=== PATIENT | female | born 1970 | race Caucasian/White ===

== ENCOUNTER 2016-10-08 11:26 | Inpatient (IN) | payer OTHER ==
--- NOTE | 2016-10-08 14:00 | ADMNOTE ---
Admission Note HPI - HPI Handedness: EMU H&P right History of Present Illness: Brina Mcghee is a 45 year old woman with a history of asthma who began having spells of alteration in consciousness/unresponsiveness in May. I saw her in my office on 09/21/16 and she was referred for long-term monitoring after undergoing a routine EEG. The initial episode occurred a few hours after she received an injection of a new medication for asthma. She did not know the name of this medication. She was observed in Dr. Dudley's office for an hour after the injection and was fine , but then in the car she had an unresponsive spell where her eyes were open, but she was staring straight ahead and wasn't speaking. When she came out of it , she was mumbling, didn't recognize her children or her own home. She was brought to the ED in [place] and then had a bad asthma attack. Her deputy sheriff building guard apparently looked into whether this medication could cause seizures and told her it had never been reported. She was then fine for a month or month and a half, but episodes then returned and have been occurring daily. Her eyes go "blank". She is motionless during an episode and she has fallen on a couple of occasions. They typically last a minute or minute and a half but she had one last night that lasted 3 minutes (her told her this, she does not recall events). She tends to talk slowly when she comes out of one, has a headache and may cry. The headache sometimes lasts all day. She has no warning prior to an event. She has no urinary incontinence or oral trauma. The most recent event occurred this morning around 5:45am. When she came out of it, she felt panicked and afraid, and this is the first time this has ever happened. She has had a headache all day since this episode. She is concerned that these episodes have to do with her asthma because she's been in the ER for breathing problems 17 times since April. She has not been to the ER since I saw her in my office, however. She is not having trouble breathing when these episodes occur. She has 3 teens in the house and this is stressful. During my evaluation in my office, she reported that her is not very good at discipline and tends to be lazy. Since these events have been happening, he has been pitching in much more around the house. Two of her children have epilepsy and the third had a febrile seizure at age 2. There is otherwise no family history of epilepsy in Brina's family. Epilepsy Risk Factors: She was in special ed classes for reading and comprehension, all through school. Went to [employer]. No h/o febrile seizures, previous seizures or suspicious staring spells (used to "daydream" in school though), no h/o head injury with LOC. Mom was in a MVA while with Brina and indicated she was born with 2 black eyes. She was born a couple of weeks early and weighed 6lbs. She hit her milestones on time and graduated from [employer] at age 22. PNEA Risk Factors: Denies h/o abuse Possible secondary gain with being more attentive because of these spells. Stress with kids as per HPI. PMH/Surg Hx/FS Hx/Imm Hx Endocrine/Hematology History: Denies: Hx Anticoagulant Therapy, Hx Diabetes, Hx Thyroid Disease Cardiovascular History: Denies: Hx Congestive Heart Failure, Hx Deep Vein Thrombosis, Hx Hypertension , Hx Myocardial Infarction, Hx Pacemaker/ICD Respiratory History: Reports: Hx Asthma, Hx Chronic Obstructive Pulmonary Disease (COPD) Denies: Hx Lung Cancer, Hx Pneumonia, Hx Pulmonary Embolism GI History: Reports: Hx Gastroesophageal Reflux Disease Denies: Hx Gall Bladder Disease, Hx Gastrointestinal Bleed, Hx Ulcer, Hx Urosepsis History: Denies: Hx Kidney Stones, Hx Renal Disease Sensory History: Denies: Hx Hearing Aid Neurological History: Denies: Hx Dementia, Hx Migraine, Hx Seizures, Hx Transient Ischemic Attacks (TIA) Psychiatric History: Denies: Hx Anxiety, Hx Depression, Hx Panic Disorder, Hx Schizophrenia, Hx Bipolar Disorder - Surgical History Surgery Procedure, Year, and Place: LASER EYE SURGERY CHILD. RIGHT THUMB TRIGGER FINGER Infectious Disease History: Denies: Hx Clostridium Difficile, Hx Hepatitis, Hx Human Immunodeficiency Virus (HIV), Hx of Known/Suspected MRSA, Hx Shingles, Hx Tuberculosis, Hx Known/ Suspected VRE, Hx Known/Suspected VRSA, History Other Infectious Disease, Traveled Outside the [place] in Last 30 Days - Family History Known Family History: Positive: None, Cardiac Disease - DAD WITH CA X 3, HE IS A SMOKER , Hypertension - Social History Occupation: Disabled Lives: With Family Alcohol Use: Rare Substance Use Type: Reports: None Smoking Status (MU): Former Smoker Type: Cigarettes Amount Used/How Often: 1/4 ppd Length of Time of Smoking/Using Tobacco: 5 years Have You Smoked in the Last Year: Yes EMU Exam - Exam Physical/Neurological Exam: Physical Exam: General: Well appearing in no acute distress. Eyes: normal conjunctiva, pupils were equal and reactive from 2mm to 1.5mm. She has right exotropia. Neck: supple ENT: atraumatic, normal oropharynx MSK: no extremity deformities Derm: no rashes or lesions Neurological Exam: Mental Status: Awake and alert. Oriented to person, place, and time. Fluent. Comprehension intact. Affect appropriate. Cranial Nerves: Visual ivan full to confrontation. Pupils were equal, round, and reactive constricting from 2mm to 1.5mm. Versions were full and without nystagmus but she has right exotropia, long-standing. Facial musculature and sensation were symmetric. Hearing grossly intact to finger rub. Palate was upgoing bilaterally. Tongue was midline. Shoulder shrug was symmetric. Motor: Bulk, tone, and strength were normal throughout. Pronator drift was absent. There were no abnormal movements. Sensory: Sensation to light touch intact. Romberg was deferred. Coordination: Finger to nose and heel to yung were intact. Reflexes: 2+ throughout the upper and lower extremities with downgoing toes bilaterally. Gait: Not assessed EMU Review of Systems Review of Systems: A 12 point review of systems was completed and significantly positive for: chest pain which is intermittent and long-standing, worse when she moves a lot of furniture around her house. Cardiac w/u in past has been negative. The remainder of the review was negative except as stated above in the HPI. EMU Diagnostics - Diagnostic Interim video-EEG long-term monitoring report: Routine EEG showed some periods of diffuse slowing during drowsiness, out of proportion of what would be expected, including delta range frequencies. Radiology Impressions: MRI brain showed some non-specific white matter changes, done in [place] EMU Assessment/Plan - Assessment/Plan Assessment/Plan: 45 year old woman with a history of asthma and episodes of unresponsiveness followed by confusion/tearfulness and headaches which have been going on since May and have been occurring daily. The differential includes epileptic seizures as well as non-epileptic events, such as psychogenic non-epileptic attacks. I do not believe the asthma medication had anything to do with these events beginning directly, but I have admittedly not been able to research the medication myself because she did not know the name of it. She does not know when she is going to have a spell, but is typically able to recognize when one has occurred after the fact because of how she feels, so she was encouraged to press the button in this case since there is no one here with her currently. The goal of the present longwall foreman video/EEG monitoring session is to characterize these events and to evaluate the EEG for epileptiform activity. Plan: Admit to the Epilepsy Service, Dr. Casillas attending buttermaker continuous churn video EEG monitoring for the purpose of characterizing events above Seizure precautions IV lorazepam as needed for prolonged seizures > 3 minutes Home AED regimen: None Continue on other prescribed home medications.
[2016-10-08] MEDS ORDERED: LORazepam INJ* 2 MG/ML 1 ML VIAL IV PRN (17:19)
[2016-10-08] MEDS ORDERED: Albuterol 2.5 MG/3 ML NEB.SOL* (0.083%) INH PRN (17:22)
[2016-10-08] MEDS ORDERED: Ibuprofen TAB* 400 MG ONE (17:30)
--- NOTE | 2016-10-08 18:12 | EEG ---
[facility] VIDEO/EEG MONITORING - Monitoring Monitoring Start Date: 10/08/16 Current Monitoring Session: 10/08/16 - 10/10/16 EEG Clinical Indication: Brina Mcghee is a 45 year old woman with a history of asthma who began having episodes of unresponsiveness followed by headache, confusion and tearfulness in May. Since June or July, these have been occurring on a daily basis. She is described as motionless during events with her eyes open, staring straight ahead. She has no warning when an event it coming on and no recollection of what happens during an event. Afterward she will not recognize her family, her own home, etc. She often has a headache which can last all day. She is sometimes tearful and with the most recent event which occurred on the morning of admission, she felt panicked and fearful when she came to. A routine EEG showed non-specific slowing. Long-term monitoring is requested to characterize these events. Introduction: INTRODUCTION: The EEG was monitored from 21 scalp electrodes. Nineteen electrodes consisted of the standard parasagittal, temporal and midline leads of the International 10 -20 system. In addition, special electrodes FT9 and FT10 were placed. EEG data were recorded on an [employer] system with simultaneous MPEG-4 digital video recording of patient behavior. EEG recording was in a monopolar montage with all electrodes referenced to FCz. Significant behavioral events were signaled by an event button, or putative electrical seizure events were detected by a computer program. All EEG data were reviewed in their entirety on a monitor with reconstruction of montages and adjustments of sensitivity and filtering. Simultaneous patient behavior was viewed on an adjacent monitor and correlated with the EEG. - Medications Active Medications: Albuterol (Ventolin 2.5 Mg/3 Ml Neb.Sushma*) 2.5 mg INH Q6H PRN PRN Reason: WHEEZING Budesonide/Formoterol Fumarate (Symbicort 160/4.5 (Nf)) 1 puff INH BID JERRI PRN Reason: Protocol Diphenhydramine HCl (Benadryl Po*) 25 mg PO Q6H PRN PRN Reason: ITCHING Ibuprofen (Motrin Tab*) 400 mg PO Q6H PRN PRN Reason: PAIN Lorazepam (Ativan Inj*) 1 mg IV Q8H PRN PRN Reason: Seizure > 3 minutes Montelukast Sodium (Singulair Tab*) 10 mg PO DAILY JERRI Omeprazole (Prilosec Cap*) 20 mg PO BID JERRI Tiotropium [place] (Spiriva Respimat 2.5 Mcg(Nf)) 2 puff INH DAILY JERRI - Description Background: The waking background showed appropriate organization with clearly defined anterior-posterior voltage and frequency gradients. There was a defined posterior dominant rhythm of 9 Hertz, which was symmetrical and showed normal reactivity. Anteriorly, there was the expected pattern of lower voltage and more irregular theta and beta rhythms. During drowsiness, there was excessive intermixed, polymorphic delta in the 2 to 3 Hz range which was seen in epochs lasting 1 to 2 seconds. This was frequently diffusely represented, but sometimes was seen to exhibit a bias over the right or left temporal regions, with shifting predominance. The sleep background was appropriately organized with well-developed spindles and vertex waves indicative of stage 2 sleep. These sleep transients showed appropriate morphology and were bilaterally synchronous and symmetrical. Development of diffuse delta range frequencies with dropout of stage 2 architecture accompanied transition to slow wave sleep, and a lower voltage mixed frequency pattern associated with eye movements was consistent with REM sleep. Intericatal Epileptiform Activity: #01 10/08: No epileptiform abnormalities. Background as above, with brief epochs of excessive delta range frequencies during drowsiness. #02 10/09: No epileptiform abnormalities. Background is the same. #03 10/10: Same as above Ictal Activity: #01 10/08: No ictal events. No patient events #02 10/09: The event button was pressed at 18:05 when the nurse responded the nurse call traore, which was activated by the patient. She was crying, and indicated that she'd had a spell, which was typical of what she'd experienced at home. During testing, the patient was asked to raise her right hand and she raised her left instead. She was asked to remember "purple cow" and was later able to remember only "cow". She told the nurse the last thing she remembered was watching television, then came to and couldn't remember where she was. She felt scared. Later, she indicated she was developing a headache and that her left arm was tingly, which also happens with these episodes but she had not mentioned previously. Review of the video prior to the event button being activated showed that was eating dinner and behaving normally around 17:43. She got up to the bathroom at 17:52. She was then noted to playing on her phone and watching tv between 17:56 and 17:59. At 18:00, she turned and began to stare out the window. She was motionless, eyes open and not blinking. Her eyes looked around slightly occasionally. Two minutes later, she began blinking repeatedly and appeared to be "coming around". She then began to cry and eventually pressed the nurse call button. Throughout this event, the EEG showed her normal background rhythm and EKG was normal as well. There were no EEG changes that accompanied this event. #03 10/10: No events. - Impression Impression: This is a mildly abnormal long-term monitoring session due to the presence of excessive delta slowing with drowsiness. However, the waking and sleep backgrounds are otherwise normal, without evidence for epileptiform activity. These findings are suggestive of very mild, generalized cerebral dysfunction without increased epileptic potential. A typical spell of staring and unresponsiveness was captured, followed by crying and inability to remember a chunk of time. This event is further described above. There was no EEG correlate to this event. 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 There is no evidence to support a diagnosis of epilepsy.
[2016-10-08] MEDS: Omeprazole CAP* 20 MG PO SCH (20:30)
[2016-10-08] MEDS: PTO: Budesonide/Formote 160/4.5(NF) MDI INH SCH (20:30)
[2016-10-09] MEDS: Ibuprofen TAB* 400 MG PO PRN ×2 (07:17→18:13)
[2016-10-09] MEDS: diPHENhydraMINE PO* 25 MG PO PRN ×2 (08:16→20:07)
[2016-10-09] MEDS: Omeprazole CAP* 20 MG PO SCH ×2 (08:58→20:27)
[2016-10-09] MEDS: Montelukast Sodium TAB* 10 MG PO SCH (08:59)
[2016-10-09] MEDS: PTO: Budesonide/Formote 160/4.5(NF) MDI INH SCH ×2 (09:00→20:27)
[2016-10-09] MEDS: PTO: Tiotropium Respimt 2.5 mcg(NF) 1 PUFF MDI INH SCH (09:15)
--- NOTE | 2016-10-09 09:32 | PN ---
Epilepsy Service Progress Note - Subjective DOS: 10/09/16 No events overnight. Patient's family visited last night and she expects her to be back around noon. No new complaints. - Medications Active Medications: Albuterol (Ventolin 2.5 Mg/3 Ml Neb.Sushma*) 2.5 mg INH Q6H PRN PRN Reason: WHEEZING Budesonide/Formoterol Fumarate (Symbicort 160/4.5 (Nf)) 1 puff INH BID JERRI PRN Reason: Protocol Last Admin: 10/09/16 09:00 Dose: 1 puff Diphenhydramine HCl (Benadryl Po*) 25 mg PO Q6H PRN PRN Reason: ITCHING Last Admin: 10/09/16 08:16 Dose: 25 mg Ibuprofen (Motrin Tab*) 400 mg PO Q6H PRN PRN Reason: PAIN Last Admin: 10/09/16 07:17 Dose: 400 mg Lorazepam (Ativan Inj*) 1 mg IV Q8H PRN PRN Reason: Seizure > 3 minutes Montelukast Sodium (Singulair Tab*) 10 mg PO DAILY [facility] Last Admin: 10/09/16 08:59 Dose: 10 mg Omeprazole (Prilosec Cap*) 20 mg PO BID [facility] Last Admin: 10/09/16 08:58 Dose: 20 mg Tiotropium [place] (Spiriva Respimat 2.5 Mcg(Nf)) 2 puff INH DAILY [facility] Last Admin: 10/09/16 09:15 Dose: 2 puff EMU Diagnostics - Diagnostic Most Recent Vital Signs: Vital Signs: Temp Pulse Resp BP Pulse Ox 98.1 F 61 16 107/61 99 10/09/16 07:04 10/09/16 07:04 10/09/16 07:29 10/09/16 07:04 10/09/16 07:04 Interim video-EEG long-term monitoring report: #01 10/08: PDR 9, normal waking background. Excessive delta range frequencies during drowsiness but no discharges. Slowing is often diffuse, sometimes shifts predominance between temporal lobes. No events EMU Exam - Exam Physical/Neurological Exam: Physical Exam: General: Well appearing in no acute distress. Cardiac: RRR, nl S1, S2, no m/r/g Lungs: CTAB, no wheezing Neurological Exam: Mental Status: Awake and alert. Oriented to person, place, and time. Fluent. Comprehension intact. Affect appropriate. Cranial Nerves: Visual ivan full to confrontation. Pupils were equal, round, and reactive constricting from 2mm to 1.5mm. Versions were full and without nystagmus but she has right exotropia, long-standing. Facial musculature and sensation were symmetric. Hearing grossly intact to finger rub. Palate was upgoing bilaterally. Tongue was midline. Shoulder shrug was symmetric. Motor: Bulk, tone, and strength were normal throughout. Pronator drift was absent. There were no abnormal movements. Sensory: Sensation to light touch intact. Romberg was deferred. Coordination: Finger to nose and heel to yung were intact. Reflexes: 2+ throughout the upper and lower extremities with downgoing toes bilaterally. Gait: Not assessed EMU Progress Note Assessment/P - Assessment/Plan Assessment: 45 year old woman with asthma presenting for characterization of events of unresponsiveness followed by headache, tearfulness and sometimes a fearful feeling which began in May. Differential includes focal epileptic seizure versus psychogenic non-epileptic attack. Not suspecting this to be related to her asthma or any cardiac abnormality. No typical events recorded yet. Plan: * Continue community service specialist video EEG monitoring to capture typical episodes * Seizure precautions * lorazepam 1mg IV prn sz >3 minutes * continue home meds * can get up to chair if desired, with assistance * will consider sleep deprivation tomorrow night if no events today. Can also consider exercise bike
[2016-10-10] MEDS: Ibuprofen TAB* 400 MG PO PRN (07:14)
[2016-10-10] MEDS: PTO: Budesonide/Formote 160/4.5(NF) MDI INH SCH (08:50)
[2016-10-10] MEDS: PTO: Tiotropium Respimt 2.5 mcg(NF) 1 PUFF MDI INH SCH (08:51)
[2016-10-10] MEDS: Omeprazole CAP* 20 MG PO SCH (08:52)
[2016-10-10] MEDS: diPHENhydraMINE PO* 25 MG PO PRN (08:53)
[2016-10-10] MEDS: Montelukast Sodium TAB* 10 MG PO SCH (09:23)
[2016-10-10 09:30] VITALS: BP 105/70
--- NOTE | 2016-10-10 11:21 | PN ---
Epilepsy Service Progress Note - Subjective Patient had a typical event around 1800 last evening. She was staring straight ahead, motionless, lasted about 2 minutes. She was crying afterward and developed a headache and indicated her left arm felt tingly. - Medications Active Medications: Albuterol (Ventolin 2.5 Mg/3 Ml Neb.Sushma*) 2.5 mg INH Q6H PRN PRN Reason: WHEEZING Budesonide/Formoterol Fumarate (Symbicort 160/4.5 (Nf)) 1 puff INH BID JERRI PRN Reason: Protocol Last Admin: 10/10/16 08:50 Dose: 1 puff Diphenhydramine HCl (Benadryl Po*) 25 mg PO Q6H PRN PRN Reason: ITCHING Last Admin: 10/10/16 08:53 Dose: 25 mg Ibuprofen (Motrin Tab*) 400 mg PO Q6H PRN PRN Reason: PAIN Last Admin: 10/10/16 07:14 Dose: 400 mg Lorazepam (Ativan Inj*) 1 mg IV Q8H PRN PRN Reason: Seizure > 3 minutes Montelukast Sodium (Singulair Tab*) 10 mg PO DAILY [facility] Last Admin: 10/10/16 09:23 Dose: 10 mg Omeprazole (Prilosec Cap*) 20 mg PO BID [facility] Last Admin: 10/10/16 08:52 Dose: 20 mg Tiotropium [place] (Spiriva Respimat 2.5 Mcg(Nf)) 2 puff INH DAILY [facility] Last Admin: 10/10/16 08:51 Dose: 2 puff EMU Diagnostics - Diagnostic Most Recent Vital Signs: Vital Signs: Temp Pulse Resp BP Pulse Ox 97.4 F 60 16 105/70 100 10/10/16 07:10 10/10/16 07:10 10/10/16 07:17 10/10/16 07:10 10/10/16 07:10 Interim video-EEG long-term monitoring report: #01 10/08: PDR 9, normal waking background. Excessive delta range frequencies during drowsiness but no discharges. Slowing is often diffuse, sometimes shifts predominance between temporal lobes. No events #02 10/09: At 18:05, the event button was pressed by the nurse after she responded to the nurse call button. Pt was tearful, indicating she'd experienced a spell. She was asked to raise her right hand, raised her left. Able to remember part of a recall phrase but not the whole thing. Review of the video showed she was staring straight head, motionless, for about 2 minutes prior to this. EEG was normal during the event Background otherwise the same, no epileptiform abnormalities EMU Exam - Exam Physical/Neurological Exam: Physical Exam: General: Well appearing in no acute distress. Cardiac: RRR, nl S1, S2, no m/r/g Lungs: CTAB, no wheezing Neurological Exam: Mental Status: Awake and alert. Oriented to person, place, and time. Fluent. Comprehension intact. Affect appropriate. Cranial Nerves: Visual ivan full to confrontation. Pupils were equal, round, and reactive constricting from 2mm to 1.5mm. Versions were full and without nystagmus but she has right exotropia, long-standing. Facial musculature and sensation were symmetric. Hearing grossly intact to finger rub. Palate was upgoing bilaterally. Tongue was midline. Shoulder shrug was symmetric. Motor: Bulk, tone, and strength were normal throughout. Pronator drift was absent. There were no abnormal movements. Sensory: Sensation to light touch intact. Romberg was deferred. Coordination: Finger to nose and heel to yung were intact. Reflexes: 2+ throughout the upper and lower extremities with downgoing toes bilaterally. Gait: Not assessed EMU Progress Note Assessment/P - Assessment/Plan Assessment: 45 year old woman with asthma presenting for characterization of events of unresponsiveness followed by headache, tearfulness and sometimes a fearful feeling which began in May. Differential includes focal epileptic seizure versus psychogenic non-epileptic attack. Not suspecting this to be related to her asthma or any cardiac abnormality. One typical event captured which was consistent with a psychogenic non- epileptic attack. The diagnosis was discussed with the patient and counseling was recommended. She was given the brochure on PNEA and encouraged to ask questions. She is ready for discharge and will be coming later today. Will return to answer his questions and explain diagnosis if pt desires. Plan: * Continue predatory animal exterminator video EEG monitoring to capture typical episodes until we know when will be here. Then page interventional technologist to come remove wires. * Seizure precautions * ok to d/c IV * continue home meds * anticipate discharge today
--- NOTE | 2016-10-10 11:32 | DS ---
EMU Discharge - Discharge Summary Discharge Summary: Admitted: 10/08/16 Attending: Kathleen Casillas MD Admitting Diagnosis: transient alteration in awareness Discharge Diagnosis: psychogenic non-epileptic attacks Admission History (From Admission H&P): see H&P Admission Examination: see H&P Admission AED Medications: None Hospital Course: The patient was admitted to the epilepsy service for long-term video EEG monitoring. The patient had 1 event consisting of staring with eyes open, not blinking, motionless for about 2 minutes. Afterward, she became tearful, indicated she had a headache and had some tingling/numbness of the left arm. These were considered typical of events that the patient was having at home. Review of the EEG did not demonstrate an associated epileptiform abnormality. In fact, throughout the duration of the admission there were no epileptiform abnormalities observed. The EEG demonstrated a normal waking and sleep background. These results were consistent with a diagnosis of psychogenic nonepileptic attacks (PNEA). This diagnosis was presented to the patient by Dr Casillas. We discussed, in detail, the unconscious nature of these attacks, the mind-body connection including the power of the unconscious mind, the frequency of PNEA ( one-third of our cases), that people with PNEA are not crazy, and that these attacks are real; that is, people with PNEA are not faking the attacks and do not have overt conscious control over the attacks as they arise in the subconscious mind. Sometimes with this information, the attacks stop. We provided instructions that if the attacks persist, counseling may help. We discussed first aid for these attacks: those around should allow the attacks to run their course and then the patient should return to you prior activity or rest as needed. Since these attacks pose no risk for damage to the brain, there is no reason to go to the Emergency Department unless there is a significant injury (presumably inadvertent). Once these attacks have resolved for over a month, activity restrictions can be lifted, although on days that she does not feel well, activities should be restricted. We recommend counseling. We provided the patient with our brochure discussing PNEA. The following medication medication changes were made during the testing: None As antiepileptic seizure drugs are not effective at controlling Psychogenic Non- Epileptic Attacks (PNEA), we do not recommend that she be treated with one. 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 She does not know what the medication was. She was advised that treatment of anxiety can sometimes help a patient participate more fully in counseling and for this reason, treatment of her anxiety should be considered. However, a medication for anxiety will not treat these attacks. She was advised to discuss further with her primary care physician. Discharge Examination: Same as admission. Stable, normal neurological exam except for long-standing right exotropia Destination: Home. Diet: Regular. Follow-up: with PCP in 1 to [address] Casillas's office if questions arise after discharge but does not necessarily need to follow up in the office if there are no new questions. Home Medications Medication Instructions Recorded Confirmed Type Albuterol 2.5MG/3ML (0.083%)* 1 vial NEB Q6HR PRN 10/08/16 10/08/16 History [Ventolin 2.5 MG/3 ML NEB.BHAVIK*] Budesonide/Formote 160/4.5(NF) 1 puff INH BID 10/08/16 10/08/16 History [Symbicort 160/4.5 (NF)] Montelukast Sodium TAB* [Singulair 10 mg PO DAILY 10/08/16 10/08/16 History 10 MG TAB*] Omeprazole [Prilosec] 20 mg PO BID 10/08/16 10/08/16 History Tiotropium [place] Monohydrate 2 puff INH DAILY 10/08/16 10/08/16 History [Spiriva Respimat] Ventolin HFA Inhaler* 2 puff INH Q6HR 10/08/16 10/08/16 History
== END 2016-10-10 12:44 | disposition home or self-care (01) | DRG 756 ==
LOC: EMU 11:26
PROVIDERS: ADMIT Psychiatry & Neurology Neurology; ATTEND Psychiatry & Neurology Neurology
PROC: 4A10X4Z Monitoring of Central Nervous Electrical Activity, External Approach (ICD-10-PCS; principal; 2016-10-08)
DX: 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 disorder with seizures or convulsions (principal); J44.9 Chronic obstructive pulmonary disease, unspecified; J45.909 Unspecified asthma, uncomplicated; K21.9 Gastro-esophageal reflux disease without esophagitis; Z87.891 Personal history of nicotine dependence
CPT/HCPCS: 95951; A9270-GY

== ENCOUNTER 2016-10-26 20:59 | Emergency (ER) | payer OTHER ==
[2016-10-26 21:20] VITALS: BP 131/84
[2016-10-26] MEDS ORDERED: Aspirin Low Dose CHEW TAB* 81 MG PO ONE (21:28)
--- NOTE | 2016-10-26 21:33 | UC ---
Cardiac HPI - HPI Summary HPI Summary: 45 YO FEMALE WITH THE ONSET OF SHARP SSCP ONE HOUR AGO NON RADIATING STABBING PAIN WAXES AND WANES 4-8 NO N/V NO DIAPHORESIS THIS AM VOMITED AFTER TAKING MOTRIN - History of Current Complaint Chief Complaint: UCChestPain Stated Complaint: CHEST PAIN Time Seen by Provider: 10/26/16 21:09 Hx Obtained From: Patient Onset/Duration: Sudden Onset, Lasting Hours - 1 Timing: Constant Initial Severity: Moderate Current Severity: Moderate Pain Intensity: 5 Chest Pain Location: Discrete at: - SUB STERNAL Character: Sharp/Stabbing Aggravating: Nothing Alleviating: Nothing Associated Signs & Symptoms: Positive: Chest Pain. Negative: Vision Changes, Anxiety, Recent Stress, Headaches, Numbness, Tingling, Weakness, Dizziness, SOB , Swelling, Syncope, Fever, Diaphoresis, Nausea/Vomiting, Palpitations, Cough, Hemoptysis, Back Pain, Abdominal Pain, Calf Pain/Swelling - Allergy/Home Medications Allergies/Adverse Reactions: Allergies Allergy/AdvReac Type Severity Reaction Status Date / Time Bee Venom Allergy Hives Verified 10/26/16 21:09 Penicillins Allergy Hives Verified 10/26/16 21:09 Home Medications: Home Medications Ibuprofen TAB* [Advil TAB*] 400 mg PO Q6H PRN 10/26/16 [History Confirmed ] PMH/Surg Hx/FS Hx/Imm Hx Endocrine History Of: Denies: Diabetes, Thyroid Disease, Hyperthyroidism, Hypothyroidism, Dyslipidemia Cardiovascular History Of: Denies: Cardiac Disorders, Hypertension, Pacemaker/ICD, Myocardial Infarction , Congestive Heart Failure, Atrial Fibrillation, Deep Vein Thrombosis, Bleeding Disorders Respiratory History Of: Reports: COPD, Asthma Denies: Bronchitis, Pneumonia, Pulmonary Embolism GI/ History Of: Denies: Gastroesophageal Reflux, Ulcer, Gastrointestinal Bleed, Gall Bladder Disease, Kidney Stones, Diverticulitis, Renal Disease, Urosepsis Neurological History Of: Denies: TIA, CVA, Dementia, Seizures, Migraine Psychological History Of: Denies: Anxiety, Depression, Bipolar Disorder, Schizophrenia, Post Traumatic Stress Disorder Cancer History Of: Denies: Lung Cancer, Colorectal Cancer, Breast Cancer, Prostate Cancer, Cervical Cancer Other History Of: Negative For: HIV, Hepatitis B, Hepatitis C, Anticoagulant Therapy - Surgical History Surgical History: Yes Surgery Procedure, Year, and Place: LASER EYE SURGERY CHILD. RIGHT THUMB TRIGGER FINGER - Family History Known Family History: Positive: Cardiac Disease - DAD WITH UT X 3, HE IS A SMOKER , Hypertension - Social History Alcohol Use: Rare Substance Use Type: None Smoking Status (MU): Former Smoker Type: Cigarettes Amount Used/How Often: 1/4 ppd Length of Time of Smoking/Using Tobacco: 5 years Have You Smoked in the Last Year: Yes When Did the Patient Quit Smoking/Using Tobacco: April 2015 - Immunization History Most Recent Influenza Vaccination: FALL 2015 Most Recent Tetanus Shot: Pt unsure-reports records at [facility] Most Recent Pneumonia Vaccination: N/A Review of Systems Constitutional: Negative Skin: Negative Eyes: Negative ENT: Negative Respiratory: Negative Cardiovascular: Chest Pain Gastrointestinal: Negative Genitourinary: Negative Motor: Negative Neurovascular: Negative Musculoskeletal: Negative Neurological: Negative Psychological: Negative All Other Systems Reviewed And Are Negative: Yes Physical Exam Triage Information Reviewed: Yes Appearance: Well-Appearing, No Pain Distress, Well-Nourished Vital Signs: Initial Vital Signs Temp 98.3 F 10/26/16 21:12 Pulse 73 10/26/16 21:12 Resp 22 10/26/16 21:12 BP 131/84 10/26/16 21:12 Pulse Ox 98 10/26/16 21:12 Vital Signs Reviewed: Yes Eyes: Positive: Conjunctiva Clear, Other: - RIGHT LAZY EYE. Negative: Conjunctiva Inflamed ENT: Positive: Hearing grossly normal. Negative: Nasal congestion, Nasal drainage, Tonsillar exudate, Trismus, Muffled/hoarse voice Neck: Positive: Supple, Nontender, No Lymphadenopathy Respiratory: Positive: Chest non-tender, Lungs clear, Normal breath sounds, No accessory muscle use Cardiovascular: Positive: RRR, No Murmur, Pulses Normal. Negative: Tachycardia , Bradycardia Abdominal Exam: Normal Abdomen Description: Positive: Nontender, No Organomegaly, Soft Bowel Sounds: Positive: Present Musculoskeletal: Positive: ROM Intact, No Edema Neurological: Positive: Alert Psychological Exam: Normal Skin Exam: Normal Diagnostics - EKG Cardiac Rate: NL Cardiac Rhythm: Sinus: Normal - RBBB Ectopy: None ST Segment: Normal - Assessment/Plan Course Of Treatment: DECLINES EMS TRANSFER. 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
== END 2016-10-26 21:45 | disposition left against medical advice (07) ==
LOC: UCCORT 20:59
DX: R07.2 Precordial pain (principal); J44.9 Chronic obstructive pulmonary disease, unspecified; H53.001 Unspecified amblyopia, right eye; Z88.0 Allergy status to penicillin; Z87.891 Personal history of nicotine dependence
CPT/HCPCS: 93005; 99213; A9270-GY; G0463

== ENCOUNTER 2018-04-15 09:57 | Emergency (ER) | payer OTHER ==
--- OUTSIDE RECORDS SUMMARY | 2018-04-15 11:16 | XMS REPORT ---
:1970 External Reference #:[id number] Author Organization [facility] Address [address], [address] [place] [address] Phone [phone] Care Team Providers Name Role Phone Lexi Drake M.D. Care Team Information Market Research Intern Unavailable Mariama Samuel PA-C Primary Care Physician Unavailable Payers Type Date Identification Numbers Payment Provider Subscriber Commercial Effective: Policy Number: [id number] [employer] Medicaid Brina Mcghee 2014 PayID: [id number] [address] [place] [address] Medicaid Policy Number: [id number] Medicaid Brina Mcghee PayID: [id number] [address] [place] [address] Problems Date Description Provider Status Onset: 11/05/2010 Sprain of shoulder and upper arm Eleazar Barillas M.D. Active Onset: 11/05/2010 Acquired trigger finger Eleazar Barillas M.D. 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 ADL's/IADL's Independent with all ADL's Cigarette Use Quit ETOH Use Rarely consumes alcohol Recreational Drug Use Denies Drug Use Smoking Light tobacco smoker (10 or fewer cigarettes/day) Allergies, Adverse Reactions, Alerts Date Description Reaction Status Severity Comments 06/10/2015 Bumble Bee active 06/10/2015 Penicillins active 09/24/2010 Penicillin inactive Moderate to Severe hives Medications Medication Date Status Form Strength Qnty SIG Indications Ordering Provider Nebulizer 03/16 Active Kit 1unit please J45.50 Zack Kit/Tubing/Ivanna /2017 s provide MD Jose Cruz thpiece patient with 1 kit. nebulizer, tubing, mouth piece. diagnosis: copd Spiriva 09/23 Active Aerosol 1.25mcg/A 4gm take 2 puffs J45.50 Zack Respimat /2015 ct once daily. MD Jose Cruz Singulair 09/23 Active Tablets 10mg 30tab take 1 tablet J45.50 Zack s once daily. MD Jose Cruz Albuterol 04/05 Active Nebulizer (2.5mg/3M 75ml every 4 hours L) 0.083% as needed as MD Jose Cruz needed shortness of breath Symbicort Active Aerosol 160-4.5mc 10.20 take 1 puff g/Act 0gm twice daily. MD Jose Cruz Proair HFA Active Aerosol 108(90Bas 25.5g take 2 puffs e) m every 6 hours MD Jose Cruz mcg/Act as needed for shortness of breath. Fluticasone Active Suspension 50mcg/Act instill 2 Unknown Propionate 0000 sprays into each nostril daily Loratadine Active Tablets 10mg 1 PO Daily as LionelChr / Needed istopher GONZALEZ Fluoxetine HCL Active Capsules 40mg 1 by mouth Unknown (PMDD) /0000 daily Alprazolam Active Tablets 0.5mg 1 by mouth Unknown /0000 Dispers every night Atorvastatin Active Tablets 40mg 1 by mouth Unknown Calcium /0000 every day Nucala 04/27 Hx Solution 100mg 1unit 100 mg Rec s subcutaneous MD Jose Cruz every 4 weeks. Prednisone 12/31 Hx Tablets 20mg 10tab take 2 J45.50 Zack /2015 s tablets daily MD Jose Cruz for 5 days. Prednisone 11/16 Hx Tablets 20mg 30tab Take 1 tablet J45.50 Zack /2015 s a day. MD Jose Cruz Alprazolam 06/15 Hx Tablets 0.25mg 2 Times A Day Docusate 06/15 Hx Capsules 100mg 2 Times A Day Unknown Sodium Duoneb 06/15 Hx Solution 4 Times Day Resp. Treatment Ondansetron 06/15 Hx Tablets 4mg Every 8 Hours Unknown HCL prn nausea Oxycodone/Acet 06/15 Hx Tablets 5-325mg Every 6 Hours Unknown aminophen as Needed prn Pain Pantoprazole 06/[address] 40mg Qday@0630 Unknown Sodium Prednisone 06/15 Hx Tablets 10mg Once Daily Valacyclovir 06/15 Hx Tablets 1gm 3 Times Daily Unknown HCL Acetaminophen 05/06 Hx Tablets 325mg 100ta Every 4 Hours bs as Needed prn Pain Mild (1 To 4) Lactinex 05/06 Hx Tablets 14tab 2 Times A Day s Repack No Active 11/30 Hx Unknown Medications /2010 - 05/06 Independence 11/11 Hx Tablets 5-325mg 30tab 1-2 tab po 727.03 s q4h prn pain Mango N.P. - post op. 11/29 Ibuprofen Hx Tablets 800mg 20tab po qd prn Unknown / s - 11/10 Metoprolol Hx Tablets ER 25mg 1 by mouth Unknown Succinate ER /0000 24HR every day - 07/22 Prednisone Hx Tablets 20mg as directed Unknown / Medications Administered in Office Medication Date Status Form Strength Qnty SIG Indications Ordering Provider Injection, Administered Injection Zack kennedy, 016 MD Jose Cruz 1mg Vital Signs Date Vital Result Comment 03/16/2018 BP Systolic Sitting Left Arm 138 mmHg BP Diastolic Sitting Left Arm 98 mmHg Heart Rate 90 /min Respiratory Rate 18 /min Height 67 inches 5'7" Weight 142.00 lb BMI (Body Mass Index) 22.2 kg/m2 BSA (Body Surface Area) 1.75 m2 [place] body weight in kilograms 61 O2 % BldC Oximetry 97 % Ora 03/29/2017 BP Systolic Sitting Right Arm 122 mmHg BP Diastolic Sitting Right Arm 88 mmHg Heart Rate 88 /min Respiratory Rate 16 /min Height 67 inches 5'7" Weight 145.00 lb BMI (Body Mass Index) 22.7 kg/m2 BSA (Body Surface Area) 1.76 m2 [place] body weight in kilograms 61 O2 % BldC Oximetry 97 % 06/09/2016 BP Systolic Sitting Left Arm 21384 mmHg Heart Rate 88 /min Height 67 inches 5'7" Weight 160.00 lb BMI (Body Mass Index) 25.1 kg/m2 BSA (Body Surface Area) 1.84 m2 O2 % BldC Oximetry 97 % 04/27/2016 BP Systolic Sitting Left Arm 118 mmHg BP Diastolic Sitting Left Arm 88 mmHg Heart Rate 92 /min Height 67 inches 5'7" Weight 158.00 lb BMI (Body Mass Index) 24.7 kg/m2 BSA (Body Surface Area) 1.83 m2 O2 % BldC Oximetry 97 % 01/01/2016 BP Systolic Standing Resting Right Arm 118 mmHg BP Diastolic Standing Resting Right Arm 76 mmHg Heart Rate 103 /min Height 67 inches 5'7" Weight 158.00 lb BMI (Body Mass Index) 24.7 kg/m2 BSA (Body Surface Area) 1.83 m2 [place] body weight in kilograms 61 O2 % BldC Oximetry 97 % 11/17/2015 BP Systolic Standing Resting Right Arm 122 mmHg BP Diastolic Standing Resting Right Arm 80 mmHg Heart Rate 78 /min Height 67 inches 5'7" Weight 160.00 lb BMI (Body Mass Index) 25.1 kg/m2 BSA (Body Surface Area) 1.84 m2 O2 % BldC Oximetry 98 % 09/24/2015 BP Systolic Sitting Left Arm 110 mmHg BP Diastolic Sitting Left Arm 82 mmHg Heart Rate 70 /min Height 67 inches 5'7" Weight 156.00 lb BMI (Body Mass Index) 24.4 kg/m2 BSA (Body Surface Area) 1.82 m2 O2 % BldC Oximetry 98 % 07/22/2015 BP Systolic Sitting Left Arm 110 mmHg BP Diastolic Sitting Left Arm 74 mmHg Heart Rate 90 /min Height 66 inches 5'6" Weight 151.00 lb BMI (Body Mass Index) 24.4 kg/m2 BSA (Body Surface Area) 1.77 m2 O2 % BldC Oximetry 98 % 09/24/2010 Height 68 inches 5'8" Weight 147.00 lb BMI (Body Mass Index) 22.3 kg/m2 Results Test Date Test Result H/L Range Note Neutrophils # (Auto) 03/08/2016 Neutrophils # (Auto) 3.54 1.8-7.0 Laboratory test finding 03/08/2016 Urine Bilirubin Negative Negative Urine Color Yellow Yellow Urine Leukocyte Esterase Negative Negative Urine Nitrite Negative Negative Urine Protein Trace Negative Urine Urobilinogen 0.2 0.2-1.0 Urine pH 5.5 Low 6.5-7.5 Urine Blood 03/08/2016 Urine Blood Negative Negative Urine Clarity 03/08/2016 Urine Clarity Clear Clear Urine Glucose (Ua) 03/08/2016 Urine Glucose (Ua) Negative Negative Urine Ketones 03/08/2016 Urine Ketones Negative Negative Laboratory test finding 03/08/2016 Alanine Aminotransferase 29 12-78 (Alt/SGPT) Albumin 3.6 3.4-5.0 Albumin/Globulin Ratio 0.9 Alkaline Phosphatase 64 45-117 Anion Gap 9 8-16 BUN/Creatinine Ratio 8.8 Basophils # (Auto) 0.03 0.0-0.1 Basophils (%) (Auto) 0.6 0.0-1.1 Blood Urea Nitrogen 8 7-18 Calcium Level 8.5 8.5-10.1 Carbon Dioxide Level 21 21-32 Chloride Level 105 98-107 Creatinine 0.9 0.6-1.3 Eosinophils # (Auto) 0.03 0.0-0.5 Eosinophils (%) (Auto) 0.6 0.0-6.6 Globulin 3.9 1.9-4.3 Glucose Screen 115 High 74-106 Hematocrit 41.1 36.0-46.1 Hemoglobin 14.4 11.6-15.8 Lipase 103 73-393 Lymphocytes (%) (Auto) 14.5 Low 17.0-46.1 Mean Corpuscular Hemoglobin 29.3 25.9-32.7 Mean Corpuscular Hemoglobin Concent 35.0 High 30.8-34.3 Mean Corpuscular Volume 83.7 80.9-99.0 Mean Platelet Volume 11.0 8.9-12.4 Monocytes # (Auto) 0.57 0.3-0.9 Monocytes (%) (Auto) 11.7 4.3-13.2 Neutrophils (%) (Auto) 72.6 40.4-72.8 Platelet Count 252 155-360 Potassium Level 3.7 3.5-5.1 RDW Coefficient of Variation 14.1 11.7-14.4 Red Blood Count 4.91 3.90-5.40 Red Cell Distribution Width 42.5 3-47 Sodium Level 135 Low 136-145 Total Bilirubin 0.3 0.2-1.0 Total Protein 7.5 6.4-8.2 White Blood Count 4.9 3.1-10.7 Lymphocytes # (Auto) 03/08/2016 Lymphocytes # (Auto) 0.71 Low 1.8-7.0 Aspartate Amino Transf 03/08/2016 Aspartate Amino Transf 20 15-37 (Ast/Sgot) (Ast/Sgot) Stlsj-6-Pelzncriqom 01/13/2016 Iugmo-8-Ewqqzvreoeo 126 90-200 Total Creatine Kinase 01/06/2016 Total Creatine Kinase 92 26-192 Laboratory test finding 12/16/2015 Alanine Aminotransferase 20 12-78 (Alt/SGPT) Albumin 3.3 Low 3.4-5.0 Albumin/Globulin Ratio 1.1 Alkaline Phosphatase 48 45-117 Anion Gap 8 8-16 Aspartate Amino Transf (Ast/Sgot) 7 Low 15-37 BUN/Creatinine Ratio 16.6 Blood Urea Nitrogen 15 7-18 Calcium Level 8.2 Low 8.5-10.1 Carbon Dioxide Level 25 21-32 Chloride Level 107 98-107 Creatinine 0.9 0.6-1.3 Globulin 2.9 1.9-4.3 Glucose Screen 93 74-106 Hematocrit 39.3 36.0-46.1 Hemoglobin 12.9 11.6-15.8 Magnesium Level 2.1 1.8-2.4 Mean Corpuscular Hemoglobin 28.0 25.9-32.7 Mean Corpuscular Hemoglobin Concent 32.8 30.8-34.3 Mean Corpuscular Volume 85.2 80.9-99.0 Mean Platelet Volume 11.1 8.9-12.4 Platelet Count 300 155-360 Potassium Level 3.9 3.5-5.1 RDW Coefficient of Variation 14.3 11.7-14.4 Red Blood Count 4.61 3.90-5.40 Sodium Level 140 136-145 Total Bilirubin 0.3 0.2-1.0 Total Protein 6.2 Low 6.4-8.2 White Blood Count 8.3 3.1-10.7 Smear For Eos 12/15/2015 Eosinophil Smear NONE SEEN Nasal WBC NONE SEEN Smear Source: SPUTUM Laboratory test finding 12/15/2015 Nasal Smear WBC None Seen Specimen Comment (Misc) Sputum Laboratory test 12/15/2015 Miscellaneous Test Test(s) added finding Comment Laboratory test 12/15/2015 Urine Bacteria Very Few None Seen finding Urine Bilirubin Negative Negative Urine Blood Negative Negative Urine Clarity Clear Clear Urine Color Yellow Yellow Urine Culture No Growth Urine Epithelial Cells Few None Seen Urine Glucose (Ua) Negative Negative Urine Ketones Negative Negative Urine Leukocyte Esterase Small High Negative Urine Nitrite Negative Negative Urine Protein Negative Negative Urine RBC None Seen 0-2 Urine Specific [place] 1.010 1.010-1.030 Urine Urobilinogen 0.2 0.2-1.0 Urine pH 6.0 Low 6.5-7.5 Laboratory test finding 12/13/2015 Basophils # (Auto) 0.09 0.0-0.1 Basophils (%) (Auto) 1.1 0.0-1.1 Eosinophils # (Auto) 0.50 0.0-0.5 Eosinophils (%) (Auto) 6.2 0.0-6.6 Lymphocytes # (Auto) 1.89 1.8-7.0 Lymphocytes (%) (Auto) 23.5 17.0-46.1 Monocytes # (Auto) 0.83 0.3-0.9 Monocytes (%) (Auto) 10.3 4.3-13.2 Neutrophils # (Auto) 4.74 1.8-7.0 Neutrophils (%) (Auto) 58.9 40.4-72.8 Red Cell Distribution Width 40.6 3-47 Total Creatine Kinase 155 26-192 Laboratory test finding 11/06/2015 Influenza Type A Antigen Negative ( Negative) Influenza Type B Antigen Negative (Negative) Laboratory test finding 11/06/2015 Anion Gap 8 8-16 BUN/Creatinine Ratio 11.1 Basophils # (Auto) 0.08 0.0-0.1 Basophils (%) (Auto) 0.9 0.0-1.1 Blood Urea Nitrogen 10 7-18 Calcium Level 8.5 8.5-10.1 Carbon Dioxide Level 24 21-32 Chloride Level 106 98-107 Creatinine 0.9 0.6-1.3 D-Dimer, Quantitative 0.31 Eosinophils # (Auto) 0.82 High 0.0-0.5 Eosinophils (%) (Auto) 9.6 High 0.0-6.6 Glucose Screen 95 74-106 Hematocrit 42.2 36.0-46.1 Hemoglobin 14.3 11.6-15.8 Lymphocytes # (Auto) 1.68 Low 1.8-7.0 Lymphocytes (%) (Auto) 19.6 17.0-46.1 Mean Corpuscular Hemoglobin 28.5 25.9-32.7 Mean Corpuscular Hemoglobin Concent 33.9 30.8-34.3 Mean Corpuscular Volume 84.1 80.9-99.0 Mean Platelet Volume 11.1 8.9-12.4 Monocytes # (Auto) 0.83 0.3-0.9 Monocytes (%) (Auto) 9.7 4.3-13.2 Neutrophils # (Auto) 5.17 1.8-7.0 Neutrophils (%) (Auto) 60.2 40.4-72.8 Platelet Count 299 155-360 Potassium Level 3.8 3.5-5.1 RDW Coefficient of Variation 13.7 11.7-14.4 Red Blood Count 5.02 3.90-5.40 Red Cell Distribution Width 41.0 3-47 Sodium Level 138 136-145 White Blood Count 8.6 3.1-10.7 Laboratory test 09/30/2015 Miscellaneous Test Comment Unable to add finding tests Laboratory test 09/30/2015 Alanine Aminotransferase 23 12-78 finding (Alt/SGPT) Albumin 3.5 3.4-5.0 Albumin/Globulin Ratio 1.0 Alkaline Phosphatase 63 45-117 Anion Gap 8 8-16 Aspartate Amino Transf (Ast/Sgot) 14 Low 15-37 BUN/Creatinine Ratio 9.0 Basophils # (Auto) 0.06 0.0-0.1 Basophils (%) (Auto) 1.1 0.0-1.1 Blood Urea Nitrogen 10 7-18 Calcium Level 8.2 Low 8.5-10.1 Carbon Dioxide Level 25 21-32 Chloride Level 105 98-107 Creatinine 1.1 0.6-1.3 Eosinophils # (Auto) 0.33 0.0-0.5 Eosinophils (%) (Auto) 6.1 0.0-6.6 Estimated GFR (Non- 58 >60 Globulin 3.4 1.9-4.3 Glucose Screen 100 74-106 Hematocrit 41.3 36.0-46.1 Hemoglobin 14.2 11.6-15.8 Lymphocytes # (Auto) 1.23 Low 1.8-7.0 Lymphocytes (%) (Auto) 22.8 17.0-46.1 Mean Corpuscular Hemoglobin 29.3 25.9-32.7 Mean Corpuscular Hemoglobin Concent 34.4 High 30.8-34.3 Mean Corpuscular Volume 85.2 80.9-99.0 Mean Platelet Volume 10.4 8.9-12.4 Monocytes # (Auto) 0.83 0.3-0.9 Monocytes (%) (Auto) 15.4 High 4.3-13.2 Neutrophils # (Auto) 2.94 1.8-7.0 Neutrophils (%) (Auto) 54.6 40.4-72.8 Platelet Count 312 155-360 Potassium Level 3.9 3.5-5.1 RDW Coefficient of Variation 12.7 11.7-14.4 Red Blood Count 4.85 3.90-5.40 Red Cell Distribution Width 38.5 3-47 Sodium Level 138 136-145 Total Bilirubin 0.3 0.2-1.0 Total Creatine Kinase 76 26-192 Total Protein 6.9 6.4-8.2 White Blood Count 5.4 3.1-10.7 Laboratory test finding 09/22/2015 Alanine Aminotransferase (Alt/SGPT) 20 12-78 Albumin 3.9 3.4-5.0 Albumin/Globulin Ratio 1.3 Alkaline Phosphatase 60 45-117 Anion Gap 9 8-16 Aspartate Amino Transf (Ast/Sgot) 9 Low 15-37 BUN/Creatinine Ratio 10.0 Blood Urea Nitrogen 10 7-18 Calcium Level 8.1 Low 8.5-10.1 Carbon Dioxide Level 23 21-32 Chloride Level 107 98-107 Creatinine 1.0 0.6-1.3 Globulin 3.1 1.9-4.3 Glucose Screen 122 High 74-106 Potassium Level 3.8 3.5-5.1 Sodium Level 139 136-145 Total Bilirubin 0.4 0.2-1.0 Total Creatine Kinase 76 26-192 Total Protein 7.0 6.4-8.2 Laboratory test finding 09/22/2015 Basophils # (Auto) 0.07 0.0-0.1 Basophils (%) (Auto) 1.1 0.0-1.1 Eosinophils # (Auto) 0.44 0.0-0.5 Eosinophils (%) (Auto) 6.6 0.0-6.6 Hematocrit 43.6 36.0-46.1 Hemoglobin 15.0 11.6-15.8 Lymphocytes # (Auto) 1.13 Low 1.8-7.0 Lymphocytes (%) (Auto) 17.0 17.0-46.1 Mean Corpuscular Hemoglobin 29.5 25.9-32.7 Mean Corpuscular Hemoglobin Concent 34.4 High 30.8-34.3 Mean Corpuscular Volume 85.7 80.9-99.0 Mean Platelet Volume 10.4 8.9-12.4 Monocytes # (Auto) 0.46 0.3-0.9 Monocytes (%) (Auto) 6.9 4.3-13.2 Neutrophils # (Auto) 4.53 1.8-7.0 Neutrophils (%) (Auto) 68.4 40.4-72.8 Platelet Count 343 155-360 RDW Coefficient of Variation 12.7 11.7-14.4 Red Blood Count 5.09 3.90-5.40 Red Cell Distribution Width 38.8 3-47 White Blood Count 6.6 3.1-10.7 Laboratory test finding 09/11/2015 Influenza Type A Antigen Negative ( Negative) Influenza Type B Antigen Negative (Negative) Laboratory test finding 07/03/2015 Immunoglobulin E,Total 26 IU/mL 0-100 1 Allergens,Zone 1 07/03/2015 mRast Class (Text Only) See Note 2 D Pteronyssinus <0.10 Wtpbs7yY/L D Farinae Mite <0.10 Plepf3pA/L Cat Hair/Dander <0.10 Orelv0qC/L Dog Hair/Dander <0.10 Gwaoh1bM/L Bluegrass,[place] <0.10 Iddkn8gJ/L [place] Grass <0.10 Mnldv4uO/L [place] Grass <0.10 Ilpyd9oB/L Cockroach,Scottish <0.10 Lnldw9lQ/L Penicillium Not <0.10 Ffkbp8cW/L Cladosporium Herbarum <0.10 Hogko3gV/L Apergillis Fumigatus Ige <0.10 Yuawz2bB/L Mucor Racemosus <0.10 Jgmfn9xX/L Alternaria Tenuis <0.10 Vnsrq1xM/L Stemphylium Bot <0.10 Wjbgt1vP/L Birch,White <0.10 Ifote6yW/L [place],White <0.10 Wtnnk9eK/L Elm,Scottish (White) <0.10 Hueal4vN/L [place],White <0.10 Jtxgg4uZ/L Hazelnut Tree <0.10 Ulpet5wG/L [place],White <0.10 Ryips5gN/L [place],White <0.10 Xqqwn0oU/L [place] <0.10 Qvubm7hS/L Ragweed,Short/ <0.10 Qdchc1rL/L Mugwort <0.10 Gqsrd5sS/L Plantain,Thai <0.10 Hfivs5yG/L Pigweed,Rough <0.10 Okoxo0dE/L Sheep Mulat (DO <0.10 Tmren8aC/L Nettle <0.10 Vmeem8oS/L Maple/Ida Ige T001 <0.10 Asxim9tQ/L Laboratory test finding 07/03/2015 Dog Epithelia See Note 3 House Dust ([place]) <0.10 Zzdkw9pN/L 4 Laboratory test finding 07/03/2015 Anion Gap 9 8-16 BUN/Creatinine Ratio 16.6 Basophils # (Auto) 0.00 0.0-0.1 Basophils (%) (Auto) 0.0 0.0-1.1 Blood Urea Nitrogen 10 7-18 Calcium Level 8.1 Low 8.5-10.1 Carbon Dioxide Level 22 21-32 Chloride Level 111 High 98-107 Creatinine 0.6 0.6-1.3 Eosinophils # (Auto) 0.01 0.0-0.5 Eosinophils (%) (Auto) 0.1 0.0-6.6 Glucose Screen 139 High 74-106 Hematocrit 35.4 36.0-46.1 Hemoglobin 12.2 11.6-15.8 Lymphocytes # (Auto) 0.75 Low 1.8-7.0 Lymphocytes (%) (Auto) 5.6 Low 17.0-46.1 Mean Corpuscular Hemoglobin 32.1 25.9-32.7 Mean Corpuscular Hemoglobin Concent 34.5 High 30.8-34.3 Mean Corpuscular Volume 93.2 80.9-99.0 Mean Platelet Volume 10.8 8.9-12.4 Monocytes # (Auto) 0.60 0.3-0.9 Monocytes (%) (Auto) 4.5 4.3-13.2 Neutrophils # (Auto) 12.00 High 1.0-7.0 Neutrophils (%) (Auto) 89.8 High 40.4-72.8 Platelet Count 281 155-360 Potassium Level 4.2 3.5-5.1 RDW Coefficient of Variation 14.5 High 11.7-14.4 Red Blood Count 3.80 Low 3.90-5.40 Red Cell Distribution Width 47.7 High 3-47 Sodium Level 142 136-145 White Blood Count 13.4 3.1-10.7 Allergen Reference Ranges See Note 5 Immunoglobulin E 26 0-100 Laboratory test finding 07/03/2015 Miscellaneous Test Comment Test(s) added Laboratory test finding 07/02/2015 CSF Streptococcus pneumoniae Not indicated. . Ag Strep pneumoniae Special Info Not Indicated . Streptococcus pneumoniae Ag Source Urine . Ur Streptococcus pneumoniae Antigen Negative Negative Urine Legionella pneumophilia Ag Negative Negative Laboratory test finding 07/01/2015 Alanine Aminotransferase (Alt/SGPT) 29 12-78 Albumin 3.7 3.4-5.0 Albumin/Globulin Ratio 1.1 Alkaline Phosphatase 61 45-117 Aspartate Amino Transf (Ast/Sgot) 14 Low 15-37 Globulin 3.3 1.9-4.3 Total Bilirubin 0.4 0.2-1.0 Total Creatine Kinase 121 26-192 Total Protein 7.0 6.4-8.2 Laboratory test finding 06/15/2015 Blood Gas Patient Heart Rate 72 FiO2 21 21-100 Miscellaneous Test Comment 159 Oxygen Saturation (Pulse Oximetry) 90 Low 93-98 Laboratory test finding 06/14/2015 Blood Gas Patient Status Resting Blood Gas Position Sitting Up In Bed Oxygen Saturation (Pulse Oximetry) 95 93-98 Laboratory test finding 06/14/2015 Anion Gap 3 Low 8-16 BUN/Creatinine Ratio 18.3 Blood Urea Nitrogen 11 7-18 Calcium Level 8.0 Low 8.5-10.1 Carbon Dioxide Level 30 21-32 Chloride Level 106 98-107 Creatinine 0.6 0.6-1.3 Glucose Screen 88 74-106 Hematocrit 37.2 36.0-46.1 Hemoglobin 12.6 11.6-15.8 Mean Corpuscular Hemoglobin 31.7 25.9-32.7 Mean Corpuscular Hemoglobin Concent 33.9 30.8-34.3 Mean Corpuscular Volume 93.5 80.9-99.0 Mean Platelet Volume 9.9 8.9-12.4 Platelet Count 284 155-360 Potassium Level 4.2 3.5-5.1 RDW Coefficient of Variation 14.4 11.7-14.4 Red Blood Count 3.98 3.90-5.40 Sodium Level 139 136-145 White Blood Count 12.5 High 3.1-10.7 Laboratory test finding 06/14/2015 Oximetry Flow 1 Oxygen Delivery Device N/C Laboratory test finding 06/12/2015 Differential Total Cells Counted 100 Lymphocytes % 1 Low 17-56 Monocytes % 5 0-10 Neutrophils % 94 High 33-73 Normal RBC Morphology Normal Platelet Estimate Normal Laboratory test finding 06/11/2015 Magnesium Level 2.1 1.8-2.4 Laboratory test finding 06/10/2015 Stu Test Yes Arterial Blood Base Excess -6 Low -2-2 Arterial Blood Hco3 18 Low 22-26 Arterial Blood Oxygen Saturation 97 90-99 Arterial Blood pCO2 at Patient Temp 31 Low 35-45 Arterial Blood pH at Patient Temp 7.38 7.35-7.45 Arterial Blood pO2 at Patient Temp 84 80-105 Blood Gas Puncture Site L.Rad.Art. Blood Gas Specimen Type Room Air FiO2 21 20-101 Laboratory test finding 06/10/2015 D-Dimer, Quantitative 0.90 Laboratory test finding 05/17/2015 Lactic Acid Level 1.7 0.4-2.0 Laboratory test finding 05/17/2015 Alanine Aminotransferase 29 12-78 (Alt/SGPT) Albumin 3.7 3.4-5.0 Albumin/Globulin Ratio 1.2 Alkaline Phosphatase 76 45-117 Anion Gap 8 8-16 Aspartate Amino Transf (Ast/Sgot) 12 Low 15-37 BUN/Creatinine Ratio 14.4 Basophils # (Auto) 0.05 0.0-0.1 Blood Urea Nitrogen 13 7-18 Calcium Level 8.6 8.5-10.1 Carbon Dioxide Level 24 21-32 Chloride Level 108 High 98-107 Creatinine 0.9 0.6-1.3 Differential Total Cells Counted 100 Eosinophils # (Auto) 0.31 0.0-0.5 Eosinophils % 2 0-5 Globulin 3.2 1.9-4.3 Glucose Screen 106 74-106 Hematocrit 42.0 36.0-46.1 Hemoglobin 14.2 11.6-15.8 Lymphocytes # (Auto) 1.50 Low 1.8-7.0 Lymphocytes % 23 17-56 Mean Corpuscular Hemoglobin 30.9 25.9-32.7 Mean Corpuscular Hemoglobin Concent 33.8 30.8-34.3 Mean Corpuscular Volume 91.3 80.9-99.0 Mean Platelet Volume 10.1 8.9-12.4 Monocytes # (Auto) 0.92 High 0.3-0.9 Monocytes % 8 0-10 Myelocytes % 1 High -0 Neutrophils # (Auto) 4.89 1.0-7.0 Neutrophils % 66 33-73 Normal RBC Morphology Normal Platelet Count 309 155-360 Platelet Estimate Normal Potassium Level 3.7 3.5-5.1 RDW Coefficient of Variation 13.9 11.7-14.4 Red Blood Count 4.60 3.90-5.40 Red Cell Distribution Width 45.8 3-47 Sodium Level 140 136-145 Total Bilirubin 0.3 0.2-1.0 Total Protein 6.9 6.4-8.2 White Blood Count 7.7 3.1-10.7 Laboratory test finding 05/06/2015 Vancomycin Level Trough 15.6 15.0- 20.0 Laboratory test finding 05/06/2015 Anion Gap 6 Low 8-16 BUN/Creatinine Ratio 18.5 Blood Urea Nitrogen 13 7-18 Calcium Level 8.4 Low 8.5-10.1 Carbon Dioxide Level 29 21-32 Chloride Level 104 98-107 Creatinine 0.7 0.6-1.3 Glucose Screen 89 74-106 Hematocrit 37.8 36.0-46.1 Hemoglobin 12.3 11.6-15.8 Mean Corpuscular Hemoglobin 30.3 25.9-32.7 Mean Corpuscular Hemoglobin Concent 32.5 30.8-34.3 Mean Corpuscular Volume 93.1 80.9-99.0 Mean Platelet Volume 10.7 8.9-12.4 Platelet Count 255 155-360 Potassium Level 3.7 3.5-5.1 RDW Coefficient of Variation 14.1 11.7-14.4 Red Blood Count 4.06 3.90-5.40 Sodium Level 139 136-145 White Blood Count 11.7 High 3.1-10.7 Laboratory test finding 05/05/2015 Magnesium Level 1.9 1.8-2.4 Laboratory test finding 05/04/2015 Band Neutrophils % 3 0-8 Differential Total Cells Counted 100 Lymphocytes % 3 Low 17-56 Monocytes % 3 0-10 Neutrophils % 91 High 33-73 Normal RBC Morphology Normal Platelet Estimate Normal Laboratory test 05/03/2015 Respiratory Culture Organism: Respiratory finding Charity Laboratory test 05/03/2015 Blood Gas Patient Heart 95 finding Rate Miscellaneous Test Comment 390 Oximetry Flow 2 Oxygen Saturation (Pulse Oximetry) 84 Low 93-98 Laboratory test finding 05/03/2015 Alanine Aminotransferase (Alt/SGPT) 22 12-78 Albumin 3.1 Low 3.4-5.0 Albumin/Globulin Ratio 1.0 Alkaline Phosphatase 51 45-117 Aspartate Amino Transf (Ast/Sgot) 12 Low 15-37 Globulin 3.0 1.9-4.3 Total Bilirubin 0.3 0.2-1.0 Total Protein 6.1 Low 6.4-8.2 Laboratory test finding 05/02/2015 Blood Gas Patient Status Resting Blood Gas Position Sitting Up In Bed Blood Gas Respiration Rate 18 Oxygen Saturation (Pulse Oximetry) 93 93-98 Laboratory test finding 05/02/2015 Stu Test Yes Arterial Blood Base Excess -1 -2-2 Arterial Blood Hco3 22 22-26 Arterial Blood Oxygen Saturation 97 90-99 Arterial Blood pCO2 at Patient Temp 32 Low 35-45 Arterial Blood pH at Patient Temp 7.46 High 7.35-7.45 Arterial Blood pO2 at Patient Temp 84 80-105 Blood Gas Liter Flow 2 0-20 Blood Gas Puncture Site L.Rad.Art. Blood Gas Specimen Type Oxygen FiO2 28 20-101 Oxygen Delivery Device N/C Laboratory test finding 05/02/2015 Aerobic Blood Culture No Growth: Final Report Anaerobic Blood Culture No Growth: Final Report Laboratory test finding 05/02/2015 CSF Streptococcus pneumoniae Not indicated. . Ag Strep pneumoniae Special Info Not Indicated . Streptococcus pneumoniae Ag Source Urine . Ur Streptococcus pneumoniae Antigen Negative Negative Urine Legionella pneumophilia Ag Negative Negative Urine Screen 11/11/2010 Urine Color YELLOW Yellow Urine Clarity CLEAR Clear Urine Glucose - Dipstick NEGATIVE mg/dL Negative Urine Bilirubin - Dipstick NEGATIVE Negative Urine Ketone NEGATIVE mg/dL Negative Urine Specific [place] <=1.005 Low 1.010-1.030 Urine Blood NEGATIVE Negative Urine PH 5.5 Low 6.5-7.5 Urine Protein - Dipstick NEGATIVE mg/dL Negative Urine Urobilinogen - Dipstick 0.2 E.U./dL 0.2-1.0 Urine Nitrite - Dipstick NEGATIVE Negative Urine Leuk Esterase NEGATIVE Negative CBC 11/11/2010 White Blood Count 5.6 K/uL 3.1-10.7 Red Blood Count 5.07 M/uL 3.90-5.40 Hemoglobin 15.4 gm/dL 11.6-15.8 Hematocrit 44.8 % 36.0-46.1 Mean Cell Volume 88.4 fl 80.9-99.0 Mean Corpuscular HGB 30.4 pg 25.9-32.7 Mean Corpuscular HGB Conc 34.4 g/dL High 30.8-34.3 Platelet Count 233 K/uL 155-360 Red Cell Distri Width %CV 13.7 % 11.7-14.4 Mean Platelet Volume 11.9 fL 8.9-12.4 Laboratory test finding 11/11/2010 HCG Serum, Qualitative NEGATIVE 6 Basic Metabolic Panel 11/11/2010 Glucose 79 mg/dL 76-115 BUN 12 mg/dL 5-23 Creatinine 0.9 mg/dL 0.5-1.4 Glom Filtration Rate, Estimate >60 mL/min >60 If >60 mL/min >60 7 BUN/Creat 13.3 Sodium 134 mEq/L Low 136-145 Potassium 4.0 mEq/L 3.5-5.1 Chloride 101 mEq/L 98-107 Carbon Dioxide 26 mEq/L 21-32 Anion Gap 11 mEq/L 8-16 Calcium 8.7 mg/dL 8.5-10.1 1 Performed at: RN - [facility] [address] [id number] Cardiac Catheterization Technician: Tressa Colon MD, Phone: [phone] . 2 Levels of Specific IgE Class Description of Class ----- < 0.10 0 Negative 0.10 - 0.31 0/I Equivocal/Low 0.32 - 0.55 I Low 0.56 - 1.40 II Moderate 1.41 - 3.90 III High 3.91 - 19.00 IV Very High 19.01 - 100.00 V Very High >100.00 Very High 3 Test not performed [id number] Dog Epithelia had been replaced due to a methodology change. For this reason [facility] has provided you with the new order code [id number] Dog Dander. 4 Performed at: RN - [facility] [id number] Cardiac Catheterization Technician: Tressa Colon MD, Phone: [phone] . 5 Levels of Specific IgE Class Description of Class ----- < 0.10 0 Negative 0.10 - 0.31 0/I Equivocal/Low 0.32 - 0.55 I Low 0.56 - 1.40 II Moderate 1.41 - 3.90 III High 3.91 - 19.00 IV Very High 19.01 - >100.00 Very High 6 QUERY: @BANNER Pat ID: QUERY: @BANNER Req #: 7 Note: Persistent reduction for 3 months or more in an eGFR <60 mL/min/1.73 m2 defines CKD. Patients with eGFR values >/=60 mL/min/1.73 m2 may also have CKD if evidence of persistent proteinuria is present. The original MDRD equation for estimated GFR is not valid for patients less than 18 years of age. Additional information may be found at www.kdoqi.org. Procedures Date CPT Code Description Status 06/29/2016 27224 Theraputic Or Diagnostic Injection Completed 05/14/2016 44763 Bronchospasm Provocation Evaluation Multi Spirometric Completed Determinati 05/14/2016 30232 Spirometry Completed 01/07/2016 00480 EKG Interpretation And Report Only Completed 10/01/2015 28522 ECHO Transthoracic Inc Performance Continuous Completed Electrocardio 10/01/2015 62841 Echocardiogram Complete Completed 07/29/2015 89549 Bronchospasm Provocation Evaluation Multi Spirometric Completed Determinati 07/29/2015 16182 Spirometry Completed 07/02/2015 02550 Echocardiogram Complete Completed 06/27/2015 86452 X-Ray Chest Two Views Frontal & Lateral Completed 11/18/2010 28114 Anesthesia, Lower Arm Surgery Completed (Nerve,Muscle,Tendon,Fascia,Bursa) 11/18/2010 94525 Tendon Sheath Incision (eg for trigger finger) Completed 11/05/2010 45226 Radiology, Finger(S), Two Views Completed 02/08/2008 05961 Aspiration/Injection joint Completed intermediate(wrist/ankle/elbow/olbursa 10/26/2007 20219 Stress Test Interpre And Report Only Completed 10/26/2007 66759 Stress Test Physician Super Only Completed 10/26/2007 17079 EKG Interpretation And Report Only Completed 12/21/2006 66740 Humeral condylar fracture closed medial or lateral w/o Completed maniipulat 05/07/2003 24832 Vaginal Delivery [facility] Completed 04/29/2003 26876 Non-Stress Test (NST) Completed Encounters Type Date Location Provider CPT E/M Dx Office Visit 03/29/2017 4:00p [place] [address] J45.50 Office Visit 06/09/2016 2:45p [place] [address] J45.50 F17.211 Office Visit 04/27/2016 1:00p [place] [address] J45.50 F17.211 Office Visit 01/07/2016 10:43a Cardiology Office Trey Haney, 04078 R07.9 Kalia, FAC Office Visit 01/01/2016 3:30p [place] [address] J45.50 F17.211 Office Visit 12/15/2015 12:27p [place] [address] J45.901 Office Visit 11/17/2015 3:45[place] [address] J45.50 F17.211 Office Visit 10/01/2015 3:23p Cardiology Office Trey Haney, 72347 R07.9 Kalia, [facility] Office Visit 09/24/2015 2:30p [place] [address] J45.50 F17.211 Office Visit 09/23/2015 9:34a Cardiology Office Trey MElver Haney, 77944 R07.9 M.Donovan, [facility] Office Visit 07/22/2015 2:00p [place] [address] J45.40 F17.211 Office Visit 07/02/2015 3:29p [place] [address] J45.901 Office Visit 07/01/2015 8:49a [facility] Jesus Tavarezbal, 98449 J44.1 [facility] Center M.D. Office Visit 06/10/2015 9:14a [facility] Polo Murdock, 96335 J45.901 [facility] Center M.D. Office Visit 05/02/2015 1:32p [facility] Polo Murdock, 73898 J44.1 [facility] Center M.D. J45.902 Office Visit 05/22/2013 9:26a [facility] Bird Pyle, 98721 786.50 [facility] DO Office Visit 11/05/2010 9:45a Orthopaedic Office Eleazar Barillas, 18555 840.9 M.D. 727.03 Office Visit 10/15/2010 10:30a Orthopaedic Office Eleazar Barillas, 39450 727.03 M.D. Office Visit 09/24/2010 9:00a Orthopaedic Office Eleazar Barillas, 80378 842.12 M.D. Plan of Care Future Appointment(s):03/30/2018 11:45 am - Zack Billingsley MD at [facility]/23/ 2018 - Zack Billingsley MDJ45.50 Severe persistent asthma, uncomplicatedNew Medication:Nebulizer Kit/Tubing/MouthpieceNew Labs:CBS W/Automated DiffBasic Metabolic PanelNew Orders:PFT With BronchodilatorComments:It appers she was not set up with [facility]. At this point I am going to repeat CBC and PFTs. If CBC still shows eosinophilia I will discuss starting Fasenra with her prior to referring her forbronchial thermoplasty. I discussed the importance of smoking cessation. Continue with Spiriva Respimat 1.25 mcg, Symbicort 160 mcg 2 puffs twice a day, as needed albuterol, Flonase, and Singulair. Hasspacer and peak flow meter.Follow up:2 weeks, AM appointment is ok.J30.89 Other allergic rhinitisComments:Please see as above.F17.210 Nicotine dependence, cigarettes, uncomplicatedComments:Patient counseled regarding smoking cessation. Discussed risks of cancer, heart attacks, and strokesassociated with tobacco use.Z71.6 Tobacco abuse counselingComments:Counseled for 5 minutes.
[2018-04-15 11:30] VITALS: BP 123/77
--- NOTE | 2018-04-15 11:50 | UC ---
Skin Complaint HPI - HPI Summary HPI Summary: Pt presents to with left flank and back pain progressive x 3 days. Pt states feels similar to when had shingles but no rash. Pt reports nausea with an episode of emesis this morning. Pt with progressive LLQ pain. No fever, chills. No cp, sob. No diarrhea. No analgesia taken. No trauma. no rash developed. LMP 1 week denies possibility of . No vaginal discharge Pt's medications reviewed this visit - History of Current Complaint Chief Complaint: UCSkin Time Seen by Provider: 04/15/18 11:48 Stated Complaint: POSSIBLE SHINGLES Hx Obtained From: Patient Hx Last Menstrual Period: 04/10/18 Pain Intensity: 5 - Allergy/Home Medications Allergies/Adverse Reactions: Allergies Allergy/AdvReac Type Severity Reaction Status Date / Time bee pollen Allergy Hives Verified 04/15/18 11:22 Penicillins Allergy Hives Verified 04/15/18 11:22 Home Medications: Home Medications Acetaminophen [Acetaminophen Extra Strength] 1,000 mg PO ONCE PRN 04/15/18 [ History Confirmed 04/15/18] Review of Systems Constitutional: Negative Skin: Other - sensitivity , no lesions Gastrointestinal: Vomiting, Nausea All Other Systems Reviewed And Are Negative: Yes PMH/Surg Hx/FS Hx/Imm Hx Previously Healthy: Yes Other History Of: Negative For: HIV, Hepatitis B, Hepatitis C, Anticoagulant Therapy - Surgical History Surgical History: Yes Surgery Procedure, Year, and Place: LASER EYE SURGERY CHILD. RIGHT THUMB TRIGGER FINGER - Family History Known Family History: Positive: Cardiac Disease - DAD WITH [place] X 3, HE IS A SMOKER , Hypertension - Social History Occupation: Employed Full-time Lives: With Family Alcohol Use: None Substance Use Type: None Smoking Status (MU): Heavy Every Day Tobacco Smoker Type: Cigarettes Amount Used/How Often: 1/2 ppd Length of Time of Smoking/Using Tobacco: 5 years Have You Smoked in the Last Year: Yes When Did the Patient Quit Smoking/Using Tobacco: April 2015 - Immunization History Most Recent Influenza Vaccination: FALL 2015 Most Recent Tetanus Shot: Pt unsure-reports records at [facility] Most Recent Pneumonia Vaccination: N/A Physical Exam - Summary Physical Exam Summary: Vital Signs Reviewed: Yes A+Ox3, discomfort with movement, walking Eyes: Conjunctiva Clear, FLAVIA. ENT: Hearing grossly normal TM x 2 clear, mmoist, uvula midline, no exudate, no erythema Neck: Positive: Supple Respiratory: Positive: No respiratory distress, No accessory muscle use + CTA throughout no w/r Cardiovascular: RRR nl s1, s2 no m/r CBT <2 sec abd soft + BS + TTP LLQ no distension, mild guarding,no CVA Musculoskeletal Exam: BUSH x 4 without difficulty Strength Intact, ROM Intact Neurological: Positive: Alert, + sensation throughout Psychological: Positive: Normal Response To Family Skin: Positive: no rash, no ecchymosis, no rash mild sensitivity with gentle palp Triage Information Reviewed: Yes Vital Signs: Initial Vital Signs Temp 99.5 F 04/15/18 11:24 Pulse 72 04/15/18 11:24 Resp 16 04/15/18 11:24 BP 123/77 04/15/18 11:24 Pulse Ox 100 04/15/18 11:24 Course/Dx - Course Course Of Treatment: Pt presents with left flank discomfort progressive x 3 days. states initially thought shingles, but no rash developed. on exam TTP LLQ with mild guarding. urine neg. recommend pt to ED for imaging and further eval. pt states understanding and agreement with plan. no h/o diverticulitis. spoke with NEWS ASSISTANT in ED - aware. pt to be dsicharge by POV. urine with 1+ LE otherwise wnl - Diagnoses Provider Diagnoses: LLQ pain Discharge - Sign-Out/Discharge Documenting (check all that apply): Patient Departure All imaging exams completed and their final reports reviewed: No Studies - Discharge Plan Condition: Stable Disposition: HOME Patient Education Materials: Acute Abdominal Pain (ED) Referrals: Margaret Tariq [Primary Care Provider] - Additional Instructions: The doctor that evaluated you today thinks that you need additional testing that can be completed the emergency department. It is recommended that you go directly to emergency department for further evaluation. This evaluation included blood work or imaging. This testing will be directed and decided by the provider that evaluate you at the emergency department. If pain becomes worse, you feel lightheaded, you have uncontrolled vomiting, or you have any other concerns while you are being driven to emergency department as recommended to pullover and contact 911. - Billing Disposition and Condition Condition: STABLE Disposition: Home
== END 2018-04-15 12:13 | disposition home or self-care (01) ==
LOC: UCCORT 09:57
DX: R10.32 Left lower quadrant pain (principal); F17.210 Nicotine dependence, cigarettes, uncomplicated; Z88.0 Allergy status to penicillin
CPT/HCPCS: 81003; 99212; G0463

== ENCOUNTER 2018-10-23 17:00 | Emergency (ER) | payer OTHER ==
[2018-10-23] MEDS ORDERED: Aspirin 81 mg CHEW TAB* 81 MG TAB.CHEW PO ONE (17:25)
--- NOTE | 2018-10-23 17:31 | UC ---
Cardiac HPI - HPI Summary HPI Summary: 47-year-old woman comes in with a chief complaint of chest pain and palpitations. Also yesterday. She's been nauseous short of breath with it. Pains the worst 8 out of 10 left side. It does radiate down her left arm. Right now is about a 4 out of 10. Cannot specifically say what makes it worse or better. She used to be on blood pressure medicines when she was years ago. Not on any blood pressure medicine now. - History of Current Complaint Chief Complaint: UCChestPain Stated Complaint: CHEST PAIN x2 DAYS Time Seen by Provider: 10/23/18 17:10 Hx Last Menstrual Period: 10/22/18 Pain Intensity: 6 - Allergy/Home Medications Allergies/Adverse Reactions: Allergies Allergy/AdvReac Type Severity Reaction Status Date / Time bee pollen Allergy Hives Verified 10/23/18 17:08 Penicillins Allergy Hives Verified 10/23/18 17:08 Home Medications: Home Medications Albuterol HFA INHALER* [Ventolin HFA Inhaler*] 1 - 2 puff INH Q4H PRN 10/23/18 [ History Confirmed 10/23/18] Atorvastatin* [Lipitor*] 80 mg PO DAILY 10/23/18 [History Confirmed 10/23/18] Omeprazole CAP (NF) [Prilosec CAP* 20 MG] 20 mg PO BID PRN 10/23/18 [History Confirmed 10/23/18] PMH/Surg Hx/FS Hx/Imm Hx Previously Healthy: Yes Endocrine History: Dyslipidemia Respiratory History: Asthma GI/ History: Gastroesophageal Reflux Other History Of: Negative For: HIV, Hepatitis B, Hepatitis C, Anticoagulant Therapy - Surgical History Surgical History: Yes Surgery Procedure, Year, and Place: LASER EYE SURGERY CHILD. RIGHT THUMB TRIGGER FINGER - Family History Known Family History: Positive: None, Cardiac Disease - DAD WITH IA X 3, HE IS A SMOKER , Hypertension - Social History Alcohol Use: None Substance Use Type: None Smoking Status (MU): Heavy Every Day Tobacco Smoker Type: Cigarettes Amount Used/How Often: ~1/2 PPD Length of Time of Smoking/Using Tobacco: Since Age 22 Have You Smoked in the Last Year: Yes When Did the Patient Quit Smoking/Using Tobacco: April 2015 Household Exposure Type: Cigarettes - Immunization History Most Recent Influenza Vaccination: FALL 2015 Most Recent Tetanus Shot: Pt unsure-reports records at [facility] Most Recent Pneumonia Vaccination: N/A Review of Systems All Other Systems Reviewed And Are Negative: Yes Constitutional: Positive: Negative Skin: Positive: Negative Eyes: Positive: Negative ENT: Positive: Negative Respiratory: Positive: Shortness Of Breath Cardiovascular: Positive: Palpitations, Chest Pain Gastrointestinal: Positive: Nausea Genitourinary: Positive: Negative Motor: Positive: Negative Neurovascular: Positive: Negative Musculoskeletal: Positive: Negative Neurological: Positive: Negative Psychological: Positive: Anxious Is Patient Immunocompromised?: No Physical Exam Triage Information Reviewed: Yes Appearance: Well-Appearing, No Pain Distress, Well-Nourished Vital Signs: Initial Vital Signs Temp 99 F 10/23/18 17:09 Pulse 92 10/23/18 17:09 Resp 20 10/23/18 17:09 BP 142/92 10/23/18 17:09 Pulse Ox 100 10/23/18 17:09 Vital Signs Reviewed: Yes Eye Exam: Normal Eyes: Positive: Conjunctiva Clear Neck: Positive: Supple Respiratory: Positive: Lungs clear, Normal breath sounds, No respiratory distress Cardiovascular: Positive: RRR Musculoskeletal Exam: Normal Musculoskeletal: Positive: Strength Intact, ROM Intact, No Edema, Other: - NO CALF TENDERNESS Neurological Exam: Normal Neurological: Positive: Alert, Muscle Tone Normal Psychological Exam: Normal Psychological: Positive: Age Appropriate Behavior Skin Exam: Normal - Assessment/Plan Course Of Treatment: I discussed the EKG with the patient. I do not see any ischemic changes. Because of the patient's chest pain I recommended further evaluation in the emergency department. Patient's going by ambulance. I spoke with Dr. Conte at the [facility] emergency department. Here in clinic patient received aspirin 324 mg by mouth. - Clinical Impression Provider Diagnosis: Chest pain, Palpitations Discharge - Sign-Out/Discharge Documenting (check all that apply): Patient Departure All imaging exams completed and their final reports reviewed: No Studies - Discharge Plan Condition: Stable Disposition: TRANS HIGHER LVL OF CARE FAC Referrals: Margaret Tariq [Primary Care Provider] - - Billing Disposition and Condition Condition: STABLE Disposition: Trans Higher Lvl of Care Fac
--- OUTSIDE RECORDS SUMMARY | 2018-10-23 17:40 | XMS REPORT | Continuity of Care Document ---
:1970 External Reference #:[id number] Author Name Janie Meyer Care Team Providers Name Role Phone Mariama Samuel, P.A. Primary Care Physician Unavailable Payers Date Identification Numbers Payment Provider Subscriber Policy Number: [id number] Wilfridalison Mcghee PayID: [id number] [address] [place] [address] Advance Directives Description No Information Available Problems Date Description Provider Status Onset: 09/21/2016 Transient altered mental status Kathleen Casillas MD Active Family History Date Family Member(s) Observation Comments Father Heart Disease Mother Breast Cancer Mother Diabetes Type II First Son Epilepsy First Daughter Epilepsy Social History Type Date Description Comments Sex Unknown ETOH Use Denies alcohol use Tobacco Use Start: Unknown End: Unknown Patient is a former smoker Smoking Status Reviewed: 10/16/18 Patient is a former smoker Allergies, Adverse Reactions, Alerts Date Description Reaction Status Severity Comments 09/21/2016 Penicillin Active Medications Medication Date Status Form Strength Qnty SIG Indications Ordering Provider Albuterol / Active Nebulizer (2.5mg/3ML 1 vial via Unknown Sulfate 0000 ) 0.083% nebulizer 4 times daily as needed Symbicort / Active Aerosol 80-4.5mcg/ 2 puff Unknown 0000 Act twice a day Singulair / Active Tablets 10mg 1 by mouth Unknown 0000 every day Prilosec / Active Capsules DR 10mg 1 by mouth Unknown 0000 bid Sumatriptan / Active Tablets 50mg once a day Alfred, Succinate 0000 Mariama, P.A. Atorvastatin / Active Tablets 80mg take 1 Unknown Calcium 0000 tablet by mouth once daily Hydroxyzine / Active Tablets 10mg once a day Alfred, HCL 0000 Mariama, P.A. Gabapentin / Active Capsules 300mg take 1 Unknown 0000 capsule by mouth at bedtime Immunizations Description No Information Available Vital Signs Date Vital Result Comment 10/16/2018 1:37pm Height 67 inches 5'7" Weight 151.00 lb Heart Rate 84 /min BP Systolic 122 mmHg BP Diastolic 80 mmHg BMI (Body Mass Index) 23.6 kg/m2 09/21/2016 9:24am Height 67 inches 5'7" Weight 160.00 lb Heart Rate 77 /min BP Systolic Sitting 126 mmHg BP Diastolic Sitting 78 mmHg Respiratory Rate 16 /min BMI (Body Mass Index) 25.1 kg/m2 Results Test Date Facility Test Result H/L Range Note Order 09/23/2016 [facility] EEG, Sleep Deprived <pending> [address] [place] [address] [phone] Procedures Date Code Description Status 10/09/2016 74044 EEG Monitoring & Video Recording Completed 10/08/2016 38782 EEG Monitoring & Video Recording Completed 09/23/2016 12590 EEG Recording Awake & Drowsy Completed Encounters Type Date Location Provider Dx Diagnosis Office Visit 10/10/2016 [facility] Kathleen Casillas MD 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 Office Visit 10/09/2016 [facility] Kathleen Casillas MD 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 4:31p disorder with seizures or convulsions Office Visit 10/08/2016 [facility] Kathleen Casillas MD 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 4:29p disorder with seizures or convulsions Office Visit 09/21/2016 [facility] Kathleen Casillas MD R40.4 Transient 9:30a [facility] alteration of awareness Plan of Treatment 10/16/2018 - Woody Ramirez MD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 disorder with seizures or convulsionsComments:Now has recurrent episodes of the same type that was captured by video eeg 2 years ago and were feltto be psychological in origin and not epileptic. She says she was vaguely aware of this. Discussed that the treatment to address this issue would be either through counselling or a psychiatrist but itmay be heard to treat. She denies stress or depression. Will recheck a routine eeg to make sure there are no major changes but this is unlikely.Follow up:please call for results
[2018-10-23 17:42] VITALS: BP 152/103
== END 2018-10-23 17:43 | disposition short-term general hospital (02) ==
LOC: UCCORT 17:00
DX: R07.89 Other chest pain (principal); R00.2 Palpitations; R11.0 Nausea; R06.02 Shortness of breath; J45.909 Unspecified asthma, uncomplicated; E78.5 Hyperlipidemia, unspecified; F17.210 Nicotine dependence, cigarettes, uncomplicated; K21.9 Gastro-esophageal reflux disease without esophagitis; Z79.899 Other long term (current) drug therapy
CPT/HCPCS: 93005; 99213; A9270-GY; G0463

== ENCOUNTER 2018-12-15 19:55 | Emergency (ER) | payer OTHER ==
--- OUTSIDE RECORDS SUMMARY | 2018-12-15 20:08 | XMS REPORT | Continuity of Care Document ---
:1970 External Reference #:[id number] Author Name Zack Billingsley MD Address [address] [place] [address] Care Team Providers Name Role Phone Mariama Samuel PA-C Care Team Information Catcher Plug Unavailable Mariama Samuel PA-C Primary Care Physician Unavailable Payers Date Identification Numbers Payment Provider Subscriber Effective: 2014 Policy Number: [id number] [employer] Brina Mcghee PayID: [id number] [address] [place] [address] Problems Active Problems Provider Date Uncomplicated severe persistent asthma Cata Braswell PA Onset: 11/02/2018 Sprain of shoulder and upper arm lEeazar Barillas MD Onset: 11/05/2010 Acquired trigger finger Eleazar Barillas MD Onset: 11/05/2010 Postherpetic neuralgia Onset: 06/10/2015 Exacerbation of asthma Onset: 04/05/2015 Asthma Onset: 05/01/2015 Herpes zoster Onset: 06/01/2015 Bronchitis Onset: 06/10/2015 Pleurisy Onset: 06/10/2015 Family History Date Family Member(s) Observation Comments Father Diabetes Father Heart Disease Mother Diabetes Mother Breast Cancer Social History Type Date Description Comments Sex Unknown Marital Status Lives With Diet Patient follows no dietary restrictions 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 ADL's/IADL's Independent with all ADL's Tobacco Use Start: Unknown End: Quit Unknown ETOH Use Rarely consumes alcohol Recreational Drug Use Denies Drug Use Tobacco Use Start: Unknown Light tobacco smoker (10 or fewer cigarettes/day) Smoking Status Reviewed: 11/30/18 Light tobacco smoker (10 or fewer cigarettes/day) Allergies, Adverse Reactions, Alerts Active Allergies Reaction Severity Comments Date Caio Bee 06/10/2015 Penicillins 06/10/2015 Inactive Allergies Penicillin Severe hives 09/24/2010 Medications Active Medications SIG Qnty Indications Ordering Date Provider Ventolin HFA take 2 puffs 8gm Zack Billingsley MD 11/02/2018 every 6 hours as 108(90Base) mcg/Act needed for Aerosol shortness of breath. Montelukast Sodium take 1 tablet 30tabs JDariusz.Zack Carrion MD 11/02/2018 daily. 10mg Tablets Spiriva Respimat take 2 puffs once 4gm JDariusz.Zack Carrion MD 11/02/2018 daily. 1.25mcg/Act Aerosol Nebulizer please provide 1unZack Salazar MD 03/16/2018 Kit/Tubing/Mouthpiec patient with 1 e kit. nebulizer, Kit tubing, mouth piece. diagnosis: copd Albuterol Sulfate every 4 hours as 75ml Zack Billingsley MD 04/05/2015 needed as needed (2.5mg/3ML) 0.083% shortness of Nebulizer breath Symbicort take 2 puff twice 10.200gm Zack Billingsley MD daily. 160-4.5mcg/Act Aerosol Atorvastatin Calcium 1 by mouth every Unknown day 80mg Tablets Hydroxyzine HCL 1/2 tabs by mouth Unknown 10mg in the evening Tablets Metoprolol Succinate 1 by mouth every Unknown ER day 50mg Tablets ER 24HR History Medications Nicotine Transdermal apply one daily for 28units Zack Billingsley, 2018 - System Step 1 12 hours, refrain MD Salvador from smoking while 21mg/24HR Patches wearing patch, 24HR rotate sites Nucala 100 mg subcutaneous 1units Zack Billingsley, 04/27/2016 - 100mg Solution every 4 weeks. MD [place] Rec Prednisone take 2 tablets 10tabs J45.Zack Carrion, 01/01/2016 - 20mg daily for 5 days. MD [place] Tablets Prednisone Take 1 tablet a 30tabs J45.Zack Carrion, 11/17/2015 - 20mg day. MD [place] Tablets Spiriva Respimat take 2 puffs once 4gm Penny Billingsley Zack, 09/24/2015 - daily. Unknown 1.25mcg/Act Aerosol Singulair take 1 tablet once 30tabs J45.50 Zack Billingsley, 09/24/2015 - 10mg daily. Unknown Tablets Valacyclovir HCL 3 Times Daily Unknown 06/15/2015 - 1gm Unknown Tablets Prednisone Once Daily Unknown 06/15/2015 - 10mg Unknown Tablets Pantoprazole Sodium Qday@0630 Unknown 06/15/2015 - Unknown 40mg Tablets DR Oxycodone/Acetaminop Every 6 Hours as Unknown 06/15/2015 - hen Needed prn Pain Unknown 5-325mg Tablets Ondansetron HCL Every 8 Hours prn Unknown 06/15/2015 - 4mg nausea Unknown Tablets Duoneb 4 Times Day Resp. Unknown 06/15/2015 - Solution Treatment Unknown Docusate Sodium 2 Times A Day Unknown 06/15/2015 - 100mg Unknown Capsules Alprazolam 2 Times A Day Unknown 06/15/2015 - 0.25mg Unknown Tablets Acetaminophen Every 4 Hours as 100tabs Unknown 05/06/2015 - 325mg Needed prn Pain Unknown Tablets Mild (1 To 4) Lactinex 2 Times A Day 14tabs Unknown 05/06/2015 - Repack Unknown Tablets No Active Unknown 11/30/2010 - Medications 05/06/2015 Covert 1-2 tab po q4h prn 30tabs 727.03 Racquel Cobian 11/11/2010 - 5-325mg Tablets pain post op. L., N.P. 11/29/2010 Ibuprofen po qd prn 20tabs Unknown - 800mg 11/10/2010 Tablets Metoprolol Succinate 1 by mouth every Unknown - ER day 07/22/2015 25mg Tablets ER 24HR Proair HFA take 2 puffs every 25.5gm Zack Billingsley, - 6 hours as needed Unknown 108(90Base) mcg/Act for shortness of Aerosol breath. Prednisone as directed Unknown - 20mg Unknown Tablets Fluticasone instill 2 sprays Unknown - Propionate into each nostril Unknown 50mcg/Act daily Suspension Loratadine 1 PO Daily as Jed Flowers - 10mg Needed her MD Unknown Tablets Fluoxetine HCL 1 by mouth daily Unknown - (PMDD) Unknown 40mg Capsules Alprazolam 1 by mouth every Unknown - 0.5mg night Unknown Tablets Dispers Medications Administered in Office Medication SIG Qnty Indications Ordering Provider Date Injection, mepolizumab, 1mg Zack Billingsley MD 06/29/2016 Injection Vital Signs Date Vital Result Comment 11/30/2018 1:36pm BP Systolic Sitting Left Arm 112 mmHg BP Diastolic Sitting Left Arm 80 mmHg Respiratory Rate 18 /min Height 67 inches 5'7" Weight 144.00 lb BMI (Body Mass Index) 22.6 kg/m2 BSA (Body Surface Area) 1.76 m2 [place] body weight in kilograms 61 kg 11/02/2018 2:35pm BP Systolic Sitting Left Arm 120 mmHg BP Diastolic Sitting Left Arm 80 mmHg Heart Rate 83 /min Respiratory Rate 16 /min Height 67 inches 5'7" Weight 143.00 lb BMI (Body Mass Index) 22.4 kg/m2 BSA (Body Surface Area) 1.75 m2 [place] body weight in kilograms 61 kg O2 Saturation Level with Exercise 98 % 03/16/2018 4:13pm BP Systolic Sitting Left Arm 138 mmHg BP Diastolic Sitting Left Arm 98 mmHg Heart Rate 90 /min Respiratory Rate 18 /min Height 67 inches 5'7" Weight 142.00 lb BMI (Body Mass Index) 22.2 kg/m2 BSA (Body Surface Area) 1.75 m2 [place] body weight in kilograms 61 kg O2 % BldC Oximetry 97 % Ora 03/29/2017 4:04pm BP Systolic Sitting Right Arm 122 mmHg BP Diastolic Sitting Right Arm 88 mmHg Heart Rate 88 /min Respiratory Rate 16 /min Height 67 inches 5'7" Weight 145.00 lb BMI (Body Mass Index) 22.7 kg/m2 BSA (Body Surface Area) 1.76 m2 [place] body weight in kilograms 61 kg O2 % BldC Oximetry 97 % 06/09/2016 2:36pm BP Systolic Sitting Left Arm 98497 mmHg Heart Rate 88 /min Height 67 inches 5'7" Weight 160.00 lb BMI (Body Mass Index) 25.1 kg/m2 BSA (Body Surface Area) 1.84 m2 O2 % BldC Oximetry 97 % 04/27/2016 1:03pm BP Systolic Sitting Left Arm 118 mmHg BP Diastolic Sitting Left Arm 88 mmHg Heart Rate 92 /min Height 67 inches 5'7" Weight 158.00 lb BMI (Body Mass Index) 24.7 kg/m2 BSA (Body Surface Area) 1.83 m2 O2 % BldC Oximetry 97 % 01/01/2016 3:25pm BP Systolic Standing Resting Right Arm 118 mmHg BP Diastolic Standing Resting Right Arm 76 mmHg Heart Rate 103 /min Height 67 inches 5'7" Weight 158.00 lb BMI (Body Mass Index) 24.7 kg/m2 BSA (Body Surface Area) 1.83 m2 [place] body weight in kilograms 61 kg O2 % BldC Oximetry 97 % 11/17/2015 4:08pm BP Systolic Standing Resting Right Arm 122 mmHg BP Diastolic Standing Resting Right Arm 80 mmHg Heart Rate 78 /min Height 67 inches 5'7" Weight 160.00 lb BMI (Body Mass Index) 25.1 kg/m2 BSA (Body Surface Area) 1.84 m2 O2 % BldC Oximetry 98 % 09/24/2015 2:29pm BP Systolic Sitting Left Arm 110 mmHg BP Diastolic Sitting Left Arm 82 mmHg Heart Rate 70 /min Height 67 inches 5'7" Weight 156.00 lb BMI (Body Mass Index) 24.4 kg/m2 BSA (Body Surface Area) 1.82 m2 O2 % BldC Oximetry 98 % 07/22/2015 1:56pm BP Systolic Sitting Left Arm 110 mmHg BP Diastolic Sitting Left Arm 74 mmHg Heart Rate 90 /min Height 66 inches 5'6" Weight 151.00 lb BMI (Body Mass Index) 24.4 kg/m2 BSA (Body Surface Area) 1.77 m2 O2 % BldC Oximetry 98 % 09/24/2010 9:21am Height 68 inches 5'8" Weight 147.00 lb BMI (Body Mass Index) 22.3 kg/m2 Results Test Date Facility Test Result H/L Range Note Laboratory test 03/08/2016 N2N/CCD Import Urine Bilirubin Negative Negative finding Urine Color Yellow Yellow Urine Leukocyte Esterase Negative Negative Urine Nitrite Negative Negative Urine Protein Trace Negative Urine Urobilinogen 0.2 0.2-1.0 Urine pH 5.5 Low 6.5-7.5 Urine Blood 03/08/2016 N2N/CCD Import Urine Blood Negative Negative Urine Clarity 03/08/2016 N2N/CCD Import Urine Clarity Clear Clear Urine Glucose 03/08/2016 N2N/CCD Import Urine Glucose (Ua) Negative Negative (Ua) Urine Ketones 03/08/2016 N2N/CCD Import Urine Ketones Negative Negative Laboratory test 03/08/2016 N2N/CCD Import Alanine 29 12-78 finding Aminotransferase (Alt/SGPT) Albumin 3.6 3.4-5.0 Albumin/Globulin Ratio 0.9 [...] 7.5 6.4-8.2 White Blood Count 4.9 3.1-10.7 Aspartate Amino 03/08/2016 N2N/CCD Import Aspartate Amino Transf 20 15- 37 Transf (Ast/Sgot) (Ast/Sgot) Lymphocytes # 03/08/2016 N2N/CCD Import Lymphocytes # (Auto) 0.71 Low 1.8 -7.0 (Auto) Neutrophils # 03/08/2016 N2N/CCD Import Neutrophils # (Auto) 3.54 1.8- 7.0 (Auto) Fxpjz-7-Fhvhopsxqe 01/13/2016 N2N/CCD Import Pcjeu-8-Frdqicpuqxl 126 90- 200 n Total Creatine 01/06/2016 N2N/CCD Import Total Creatine Kinase 92 26- 192 Kinase Laboratory test 12/16/2015 N2N/CCD Import Alanine 20 12-78 finding Aminotransferase (Alt/SGPT) Albumin 3.3 Low 3.4-5.0 Albumin/Globulin Ratio [...] Count 8.3 3.1-10.7 Smear For Eos 12/15/2015 [facility] Eosinophil Smear NONE SEEN [address] [place] [address] [phone] Nasal WBC NONE SEEN Smear Source: SPUTUM Laboratory test 12/15/2015 N2N/CCD Import Urine Bacteria Very Few None Seen finding Urine Bilirubin Negative Negative Urine Blood Negative Negative Urine Clarity Clear Clear Urine Color Yellow Yellow Urine Culture No Growth Urine Epithelial Cells Few None Seen Urine Glucose (Ua) Negative Negative Urine Ketones Negative Negative Urine Leukocyte Esterase Small High Negative Urine Nitrite Negative Negative Urine Protein Negative Negative Urine RBC None Seen 0-2 Urine Specific [place] 1.010 1.010-1.030 Urine Urobilinogen 0.2 0.2-1.0 Urine pH 6.0 Low 6.5-7.5 Laboratory test finding 12/15/2015 N2N/CCD Import Nasal Smear WBC None Seen Specimen Comment (Misc) Sputum Laboratory test 12/15/2015 N2N/CCD Import Miscellaneous Test Test(s) added finding Comment Laboratory test 12/13/2015 N2N/CCD Import Basophils # (Auto) 0.09 0.0- 0. finding 1 Basophils (%) (Auto) 1.1 0.0-1.1 Eosinophils # (Auto) 0.50 0.0-0.5 Eosinophils (%) (Auto) 6.2 0.0-6.6 Lymphocytes # (Auto) 1.89 1.8-7.0 Lymphocytes (%) (Auto) 23.5 17.0-46.1 Monocytes # (Auto) 0.83 0.3-0.9 Monocytes (%) (Auto) 10.3 4.3-13.2 Neutrophils # (Auto) 4.74 1.8-7.0 Neutrophils (%) (Auto) 58.9 40.4-72.8 Red Cell Distribution Width 40.6 3-47 Total Creatine Kinase 155 26-192 Laboratory test finding 11/06/2015 N2N/CCD Import Anion Gap 8 8-16 BUN/Creatinine Ratio 11.1 [...] White Blood Count 8.6 3.1-10.7 Laboratory test 11/06/2015 N2N/CCD Import Influenza Type A Negative ( Negative) finding Antigen Influenza Type B Antigen Negative (Negative) Laboratory test 09/30/2015 N2N/CCD Import Miscellaneous Test Unable to finding Comment add tests Laboratory test 09/30/2015 N2N/CCD Import Alanine 23 12-78 finding Aminotransferase (Alt/SGPT) Albumin 3.5 3.4-5.0 Albumin/Globulin Ratio 1.0 [...] White Blood Count 5.4 3.1-10.7 Laboratory test 09/22/2015 N2N/CCD Import Alanine Aminotransferase 20 12 -78 finding (Alt/SGPT) Albumin 3.9 3.4-5.0 Albumin/Globulin Ratio 1.3 Alkaline [...] 26-192 Total Protein 7.0 6.4-8.2 Laboratory test 09/22/2015 N2N/CCD Import Basophils # (Auto) 0.07 0.0- 0.1 finding Basophils (%) (Auto) 1.1 0.0-1.1 Eosinophils # [...] White Blood Count 6.6 3.1-10.7 Laboratory test 09/11/2015 N2N/CCD Import Influenza Type A Negative ( Negative) finding Antigen Influenza Type B Antigen Negative (Negative) Laboratory test 07/03/2015 [facility] Immunoglobulin 26 IU/mL 0-[address],[place] [address] [phone] Allergens,Zone 1 07/03/2015 [facility] mRast Class (Text See Note [address] Only) [place] [address] [phone] D Pteronyssinus <0.10 Lzotr1eG/L D Farinae Mite <0.10 Gxmve3wI/L Cat Hair/Dander <0.10 Bfzky9fC/L Dog Hair/Dander <0.10 Tosvu9tV/L Bluegrass,[place] <0.10 Vemvc0zL/L B[place] Grass <0.10 Ftyeu1mX/L Bahia Grass <0.10 Pbmtl3eD/L Cockroach,Indian <0.10 Nbkcy1uW/L Penicillium Not <0.10 Oyvnx4iM/L Cladosporium Herbarum <0.10 Crivn8cZ/L Apergillis Fumigatus Ige <0.10 Oxjsx6cC/L Mucor Racemosus <0.10 Gwtkk6tR/L Alternaria Tenuis <0.10 Jysuy3yS/L Stemphylium Bot <0.10 Szhpd7bB/L Birch,White <0.10 Bmeky1iN/L Pengilly,White <0.10 Hjios9gV/L Elm,Indian (White) <0.10 Goeag7bF/L Elgin,White <0.10 Xevnq6gZ/L Hazelnut Tree <0.10 Evaog7aP/L Crestone,White <0.10 Qnoox5zY/L Calvin,White <0.10 Mtqrz8mT/L Bethel,[place]ountain <0.10 Mepld6eC/L Ragweed,Short/ <0.10 Vxior8sZ/L Mugwort <0.10 Ypfml8lS/L Plantain,Kinyarwanda <0.10 Ppxuw1gO/L Pigweed,Rough <0.10 Mvgso2iO/L Sheep [place] (DO <0.10 Jpkig7mR/L Nettle <0.10 Vzibg2tT/L Maple/[place] Ige T001 <0.10 Kpfxj1fM/L Laboratory test finding 07/03/2015 [facility] Dog Epithelia See Note 3 [address] [place] [address] [phone] House Dust (Yessy) <0.10 Bdagg8jN/L 4 Laboratory test finding 07/03/2015 N2N/CCD Import Anion Gap 9 8-16 BUN/Creatinine Ratio 16.6 Basophils # (Auto) 0.00 0.0-0.1 Basophils (%) (Auto) 0.0 0.0-1.1 Blood Urea Nitrogen 10 7-18 Calcium Level 8.1 Low 8.5-10.1 Carbon Dioxide Level 22 21-32 Chloride Level 111 High 98-107 Creatinine 0.6 0.6-1.3 Eosinophils # (Auto) 0.01 0.0-0.5 Eosinophils (%) (Auto) 0.1 0.0-6.6 Glucose Screen 139 High 74-106 Hematocrit 35.4 #L 36.0-46.1 Hemoglobin 12.2 11.6-15.8 Lymphocytes # (Auto) 0.75 Low 1.8-7.0 Lymphocytes (%) (Auto) 5.6 Low 17.0-46.1 Mean Corpuscular Hemoglobin 32.1 25.9-32.7 Mean Corpuscular Hemoglobin Concent 34.5 High 30.8-34.3 Mean Corpuscular Volume 93.2 # 80.9-99.0 Mean Platelet Volume 10.8 8.9-12.4 Monocytes [...] Level 142 136-145 White Blood Count 13.4 #H 3.1-10.7 Allergen Reference Ranges See Note 5 Immunoglobulin E 26 0-100 Laboratory test 07/03/2015 [facility] Import Miscellaneous Test Test(s) added finding Comment Laboratory test 07/02/2015 [facility] Import CSF Streptococcus Not indicated. . finding pneumoniae Ag Strep pneumoniae Special Info Not Indicated . Streptococcus pneumoniae Ag Source Urine . Ur Streptococcus pneumoniae Antigen Negative Negative Urine Legionella pneumophilia Ag Negative Negative Laboratory test 07/01/2015 [facility] Import Alanine Aminotransferase 29 12 -78 finding (Alt/SGPT) Albumin 3.7 3.4-5.0 Albumin/Globulin Ratio 1.1 Alkaline Phosphatase 61 45-117 Aspartate Amino Transf (Ast/Sgot) 14 Low 15-37 Globulin 3.3 1.9-4.3 Total Bilirubin 0.4 0.2-1.0 Total Creatine Kinase 121 26-192 Total Protein 7.0 6.4-8.2 Laboratory test finding 06/15/2015 N2N/CCD Import Blood Gas Patient Heart 72 Rate FiO2 21 21-100 Miscellaneous Test Comment 159 Oxygen Saturation (Pulse Oximetry) 90 Low 93-98 Laboratory test finding 06/14/2015 N2N/CCD Import Blood Gas Patient Resting Status Blood Gas Position Sitting Up In Bed Oxygen Saturation (Pulse Oximetry) 95 93-98 Laboratory test finding 06/14/2015 N2N/CCD Import Anion Gap 3 Low 8-16 BUN/Creatinine Ratio [...] 12.5 High 3.1-10.7 Laboratory test finding 06/14/2015 N2N/CCD Import Oximetry Flow 1 Oxygen Delivery Device N/C Laboratory test finding 06/12/2015 N2N/CCD Import Differential Total Cells 100 Counted Lymphocytes % 1 Low 17-56 Monocytes % 5 0-10 Neutrophils % 94 High 33-73 Normal RBC Morphology Normal Platelet Estimate Normal Laboratory test 06/11/2015 N2N/CCD Import Magnesium Level 2.1 1.8-2.4 finding Laboratory test 06/10/2015 N2N/CCD Import D-Dimer, Quantitative 0.90 finding Laboratory test 06/10/2015 N2N/CCD Import Stu Test Yes finding Arterial Blood Base Excess -6 Low -2-2 Arterial Blood Hco3 18 Low 22-26 Arterial Blood Oxygen Saturation 97 90-99 Arterial Blood pCO2 at Patient Temp 31 Low 35-45 Arterial Blood pH at Patient Temp 7.38 7.35-7.45 Arterial Blood pO2 at Patient Temp 84 80-105 Blood Gas Puncture Site L.Rad.Art. Blood Gas Specimen Type Room Air FiO2 21 20-101 Laboratory test 05/17/2015 N2N/CCD Import Lactic Acid Level 1.7 0.4-2.0 finding Laboratory test 05/17/2015 N2N/CCD Import Alanine Aminotransferase 29 12 -78 finding (Alt/SGPT) Albumin 3.7 3.4-5.0 Albumin/Globulin Ratio 1.2 [...] White Blood Count 7.7 3.1-10.7 Laboratory test 05/06/2015 N2N/CCD Import Vancomycin Level 15.6 15.0- 20.0 finding Trough Laboratory test 05/06/2015 [facility] Import Anion Gap 6 Low 8-16 finding BUN/Creatinine Ratio 18.5 Blood Urea Nitrogen 13 [...] 11.7 High 3.1-10.7 Laboratory test finding 05/05/2015 [facility] Import Magnesium Level 1.9 1.8-2.4 Laboratory test finding 05/04/2015 N2N/CCD Import Band Neutrophils % 3 0 -8 Differential Total Cells Counted 100 Lymphocytes % 3 Low 17-56 Monocytes % 3 0-10 Neutrophils % 91 High 33-73 Normal RBC Morphology Normal Platelet Estimate Normal Laboratory test 05/03/2015 [facility] Import Alanine Aminotransferase 22 12 -78 finding (Alt/SGPT) Albumin 3.1 Low 3.4-5.0 Albumin/Globulin Ratio 1.0 Alkaline Phosphatase 51 45-117 Aspartate Amino Transf (Ast/Sgot) 12 Low 15-37 Globulin 3.0 1.9-4.3 Total Bilirubin 0.3 0.2-1.0 Total Protein 6.1 Low 6.4-8.2 Laboratory test finding 05/03/2015 [facility] Import Blood Gas Patient Heart 95 Rate Miscellaneous Test Comment 390 Oximetry Flow 2 Oxygen Saturation (Pulse Oximetry) 84 Low 93-98 Laboratory test 05/03/2015 [facility] Import Respiratory Organism: finding Culture Respiratory Charity Laboratory test 05/02/2015 [facility] Import Stu Test Yes finding Arterial Blood Base Excess -1 -2-2 Arterial [...] 20-101 Oxygen Delivery Device N/C Laboratory test 05/02/2015 N2N/CCD Import Aerobic Blood No Growth: Final finding Culture Report Anaerobic Blood Culture No Growth: Final Report Laboratory test 05/02/2015 N2N/CCD Import CSF Streptococcus Not indicated. . finding pneumoniae Ag Strep pneumoniae Special Info Not Indicated . Streptococcus pneumoniae Ag Source Urine . Ur Streptococcus pneumoniae Antigen Negative Negative Urine Legionella pneumophilia Ag Negative Negative Laboratory test finding 05/02/2015 N2N/CCD Import Blood Gas Patient Resting Status Blood Gas Position Sitting Up In Bed Blood Gas Respiration Rate 18 Oxygen Saturation (Pulse Oximetry) 93 93-98 Urine Screen 11/11/2010 [facility] Urine Color YELLOW Yellow [address] [place] [address] [phone] Urine Clarity CLEAR Clear Urine Glucose - Dipstick NEGATIVE mg/dL Negative Urine Bilirubin - Dipstick NEGATIVE Negative Urine Ketone NEGATIVE mg/dL Negative Urine Specific [place] <=1.005 Low 1.010-1.030 Urine Blood NEGATIVE Negative Urine PH 5.5 Low 6.5-7.5 Urine Protein - Dipstick NEGATIVE mg/dL Negative Urine Urobilinogen - Dipstick 0.2 E.U./dL 0.2-1.0 Urine Nitrite - Dipstick NEGATIVE Negative Urine Leuk Esterase NEGATIVE Negative Basic Metabolic Panel 11/11/2010 [facility] Glucose 79 mg/dL 76-115 [address] [place] [address] [phone] BUN 12 mg/dL 5-23 Creatinine 0.9 mg/dL 0.5-1.4 Glom Filtration Rate, Estimate >60 mL/min >60 If >60 mL/min >60 6 BUN/Creat 13.3 Sodium 134 mEq/L Low 136-145 Potassium 4.0 mEq/L 3.5-5.1 Chloride 101 mEq/L 98-107 Carbon Dioxide 26 mEq/L 21-32 Anion Gap 11 mEq/L 8-16 Calcium 8.7 mg/dL 8.5-10.1 Laboratory test 11/11/2010 [facility] HCG Serum, NEGATIVE [address] [place] [address] [phone] CBC 11/11/2010 [facility] White Blood Count 5.6 K/uL 3.1-[address] [place] [address] [phone] Red Blood Count 5.07 M/uL 3.90-5.40 Hemoglobin 15.4 gm/dL 11.6-15.8 Hematocrit 44.8 % 36.0-46.1 Mean Cell Volume 88.4 fl 80.9-99.0 Mean Corpuscular HGB 30.4 pg 25.9-32.7 Mean Corpuscular HGB Conc 34.4 g/dL High 30.8-34.3 Platelet Count 233 K/uL 155-360 Red Cell Distri Width %CV 13.7 % 11.7-14.4 Mean Platelet Volume 11.9 fL 8.9-12.4 1 Performed at: [address] [id number] [employer]: Tressa Colon MD, Phone: [phone] . 2 Levels of Specific IgE Class Description of Class ----- < 0.10 0 Negative 0.10 - 0.31 0/I Equivocal/Low 0.32 - 0.55 I Low 0.56 - 1.40 II Moderate 1.41 - 3.90 III High 3.91 - 19.00 IV Very High 19.01 - 100.00 V Very High >100.00 Very High 3 Test not performed [id number] Dog Epithelia had been replaced due to a methodology change. For this reason [facility] has provided you with the new order code [id number] Dog Dander. 4 Performed at: [address] [id number] [employer]: Tressa Colon MD, Phone: [phone] . 5 Levels of Specific IgE Class Description of Class ----- < 0.10 0 Negative 0.10 - 0.31 0/I Equivocal/Low 0.32 - 0.55 I Low 0.56 - 1.40 II Moderate 1.41 - 3.90 III High 3.91 - 19.00 IV Very High 19.01 - >100.00 Very High 6 Note: Persistent reduction for 3 months or more in an eGFR <60 mL/min/1.73 m2 defines CKD. Patients with eGFR values >/=60 mL/min/1.73 m2 may also have CKD if evidence of persistent proteinuria is present. The original MDRD equation for estimated GFR is not valid for patients less than 18 years of age. Additional information may be found at [email or web address]. 7 QUERY: @EMR Pat ID: QUERY: @EMR Req #: Procedures Date Code Description Status 11/17/2018 75405 Bronchospasm Provocation Evaluation Multi Spirometric Completed Determinati 11/17/2018 12953 Spirometry Completed 11/02/2018 26065 Event Monitor Inter/Review Only Completed 03/16/2018 02849 Pulse Oximetry Completed 06/29/2016 38879 Theraputic Or Diagnostic Injection Completed 05/14/2016 14608 Bronchospasm Provocation Evaluation Multi Spirometric Completed Determinati 05/14/2016 77840 Spirometry Completed 01/07/2016 75458 EKG Interpretation And Report Only Completed 10/01/2015 91253 ECHO Transthoracic Inc Performance Continuous Completed Electrocardio 10/01/2015 91932 Echocardiogram Complete Completed 07/29/2015 92354 Bronchospasm Provocation Evaluation Multi Spirometric Completed Determinati 07/29/2015 47689 Spirometry Completed 07/02/2015 75172 Echocardiogram Complete Completed 06/27/2015 22476 X-Ray Chest Two Views Frontal & Lateral Completed 11/18/2010 23847 Tendon Sheath Incision (eg for trigger finger) Completed 11/18/2010 91132 Anesthesia, Lower Arm Surgery Completed (Nerve,Muscle,Tendon,Fascia,Bursa) 11/05/2010 77503 Radiology, Finger(S), Two Views Completed 02/08/2008 70495 Aspiration/Injection joint Completed intermediate(wrist/ankle/elbow/olbursa 10/26/2007 45871 Stress Test Interpre And Report Only Completed 10/26/2007 88112 Stress Test Physician Super Only Completed 10/26/2007 93612 EKG Interpretation And Report Only Completed 12/21/2006 63051 Humeral condylar fracture closed medial or lateral w/o Completed maniipulat 05/07/2003 56958 Vaginal Delivery [employer] [facility] Completed 04/29/2003 48376 Non-Stress Test (NST) Completed Encounters Type Date Location Provider Dx Diagnosis Office Visit 11/02/2018 Pulmonology Cata Braswell J45.Roel Severe persistent 2:40p PA asthma, uncomplicated F17.210 Nicotine dependence, cigarettes, uncomplicated Z71.6 Tobacco abuse counseling Office Visit 03/16/2018 4:00p Pulmonology Zack Billingsley J45.50 Severe persistent MD asthma, uncomplicated J30.89 Other allergic rhinitis F17.210 Nicotine dependence, cigarettes, uncomplicated Z71.6 Tobacco abuse counseling Office Visit 03/29/2017 4:00p Pulmonology Zack Billingsley J45.Roel Severe persistent MD asthma, uncomplicated Office Visit 06/09/2016 2:45p Pulmonology Zack Billingsley J45.50 Severe persistent MD asthma, uncomplicated F17.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, cigarettes, in remission Office Visit 04/27/2016 1:00p Pulmonology Zack Billingsley J45.Roel Severe persistent MD asthma, uncomplicated F17.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, cigarettes, in remission Office Visit 01/07/2016 Cardiology Office [place], R07.9 Chest pain, 10:43a Trey Flynn M.D., unspecified FACC Office Visit 01/01/2016 PulmonZack Hinojosa J45.Roel Severe persistent 3:30p MD asthma, uncomplicated F17.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, cigarettes, in remission Office Visit 12/15/2015 12:27p Pulmonology Zack Billingsley J45.901 Unspecified asthma MD with (acute) exacerbation Office Visit 11/17/2015 3:45p Pulmonology Zack Billingsley J45.Roel Severe persistent MD asthma, uncomplicated F17.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, cigarettes, in remission Office Visit 10/01/2015 Cardiology Office Geovani Haney7.9 Chest pain, 3:23p Trey Flynn M.D., unspecified FACC Office Visit 09/24/2015 Pulmonology Zack Billingsley J45.50 Severe persistent 2:30p MD asthma, uncomplicated F17.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, cigarettes, in remission Office Visit 09/23/2015 Cardiology Office [place], R07.9 Chest pain, 9:34a Trey Flynn M.D., unspecified FACC Office Visit 07/22/2015 Pulmonology Zack Billingsley J45.40 Moderate 2:00p persistent asthma, uncomplicated F17.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, cigarettes, in remission Office Visit 07/02/2015 3:[facility] Billingsley45.901 Unspecified asthma MD Zack with (acute) exacerbation Office Visit 07/01/2015 8:49a Pending Sale To [facility] Rashel Hawkins44.1 Chronic [facility] Kalia Lee obstructive pulmonary disease w (acute) exacerbation Office Visit 06/10/2015 9:14a Pending Sale To [facility] Mary Murdock.901 Unspecified asthma [facility] Kalia Cuellar with (acute) exacerbation Office Visit 05/02/2015 1:32p Pending Sale To [facility] Rashel Murdock44.1 Chronic [facility] Kalia Cuellar obstructive pulmonary disease w (acute) exacerbation J45.902 Unspecified asthma with status asthmaticus Office Visit 05/22/2013 9:26a Pending Sale To [facility] Bird Pyle 786.50 Pain Chest [facility] J., DO Unspec Office Visit 11/05/2010 9:45a Orthopaedic Office Eleazar Barillas 840.9 Julius MD Strains Shoulder & Upper Arm Unspec 727.03 Trigger Finger Acquired Office 10/15/2010 Orthopaedic Nargis 727.03 Trigger Finger Acquired Visit 10:30a Office Eleazar Felder MD Office 09/24/2010 Jayson Barillas 842.12 Sprains & Strains Hand Visit 9:00a Office Eleazar Felder MD Metacarpophalangeal (Joint) Plan of Treatment Future Appointment(s):01/11/2019 1:30 pm - Zack [facility]/09 /2019 - Zack Billingsley MDJ45.50 Severe persistent asthma, uncomplicatedComments: I am going to see if we can get her approve for Janice as she still quite symptomatic and in the past has had a history of exacerbations. Continue with Spiriva Respimat 1.25 mcg, Symbicort 160 mcg 2 puffs twice a day, as needed albuterol, Flonase, and Singulair.Follow up:6 weeks.F17.210 Nicotine dependence , cigarettes, uncomplicatedComments:Advised to quit smoking. Discussed serious harm with smoking especially with her history of asthma.Z71.6 Tobacco abuse counselingComments:Counseled for 5 minutes.
--- OUTSIDE RECORDS SUMMARY | 2018-12-15 20:09 | XMS REPORT | Continuity of Care Document ---
:1970 External Reference #:[id number] Author Name Mariama Samuel PA Address [address] [place] [address] Care Team Providers Name Role Phone Kirit Krause DO Care Team Information Quality Reviewer Unavailable Payers Date Identification Numbers Payment Provider Subscriber Effective: 2016 Policy Number: [id number] [facility] Brina Mcghee Group Name: [facility]# [id number] [address] PayID: [id number] [place] [address] Advance Directives Description No Information Available Problems Description No Information Family History Date Family Member(s) Observation Comments Father Asthma Father Gout Father Hypertension Father Hypercholesterolemia Father Heart Disease Mother Diabetes, Adult Mother Hypercholesterolemia Mother Migraine Headache Mother Cancer, Breast First Brother Heart Disease Maternal Grandfather Stroke Maternal Grandmother Stroke Social History Type Date Description Comments Sex Unknown Marital Status ETOH Use Denies alcohol use Tobacco Use Start: Unknown Patient is a current smoker, smokes every day Tobacco Use Start: Unknown Heavy tobacco smoker (more than 10 cigarettes/day) Smoking Status Reviewed: 11/20/18 Heavy tobacco smoker (more than 10 cigarettes/day) Allergies, Adverse Reactions, Alerts Active Allergies Reaction Severity Comments Date Penicillin Rash 10/10/2017 Medications Active Medications SIG Qnty Indications Ordering Date Provider Bupropion 1 tablet by 177tabs F17.208 Kirit Krause, 11/20/2018 Hydrochloride ER (SR) mouth once daily DO for 3 days then 150mg Tablets ER 12HR 1 tablet twice daily Metoprolol Succinate 1 by mouth every 30tabs Kirit Krause, 11/08/2018 ER day DO 50mg Tablets ER 24HR Ondansetron 1 tablet every 8 30tabs R11.0 Kirit Krause, 10/25/2018 4mg Tablets hours as needed DO Dispers Sumatriptan Succinate 1 tablet by 14tabs Kirit Krause, 08/21/2018 mouth at onset DO 50mg Tablets of headache Atorvastatin Calcium take one tablet 90tabs Kirit Krause, 05/01/2018 80mg by mouth once DO Tablets daily. Hydroxyzine HCL take 1/2 tablet 90tabs G47.8 Kirit Krause, 12/26/2017 10mg by mouth at DO Tablets night Montelukast Sodium 1 by mouth every Unknown 10mg day Tablets Albuterol Sulfate HFA 2 puffs every 4 Unknown hours as needed 108(90Base) mcg/Act Aerosol History Medications Gabapentin take 1 capsule 90caps R10.32 Kirit Krause, 04/19/2018 - 300mg tid DO 10/25/2018 Capsules Famciclovir 1 tablet by 21tabs R10.32 Kirit Krause, 04/19/2018 - 500mg mouth three DO 04/26/2018 Tablets times daily for 7 days Venlafaxine HCL ER 1 by mouth 30caps F41.1 Kirit Krause, 01/27/2018 - every day DO 11/20/2018 150mg Caps ER 24HR Venlafaxine HCL ER 1 by mouth 30caps F41.1 Kirit Krause, 12/26/2017 - 75mg every day DO 01/27/2018 Caps ER 24HR Buspirone HCL 1 tablet by 60tabs F41.1 Kirit Krause, 11/14/2017 - 7.5mg mouth twice a DO 12/26/2017 Tablets day Melatonin 1 capsule by 30caps G47.8 Kirit Krause, 11/14/2017 - 5mg Capsules mouth 2-3 hours DO 12/26/2017 before bed Ciprodex 4 drops in LEFT 7.500ml H62.42 Kirit Krause, 11/14/2017 - 0.3-0.1% ear twice daily DO 04/19/2018 Suspension for 7 days Atorvastatin Calcium 1 by mouth 90tabs Kirit Krause, 10/10/2017 - every day DO 05/01/2018 40mg Tablets Fluoxetine HCL 1 by mouth 30caps KrauseKirit, 10/10/2017 - 10mg every day DO 11/14/2017 Capsules Trazodone HCL 1 tablet by 30tabs F41.1 Kirit Krause, 10/10/2017 - 50mg mouth at DO 11/14/2017 Tablets bedtime Medications Administered in Office Medication SIG Qnty Indications Ordering Provider Date Torodol Injection 15 MG Dose Mariama Samuel PA 08/21/2018 Injection Immunizations CPT Code Status Date Vaccine Lot # [id number] Given 11/20/2018 Tdap (Adacel) Ages 7 And Above Only [id number] Refused 06/01/2018 Influenza Vac, Quadrivalent, Split, 0.5mL Dosage, Im Use Vital Signs Date Vital Result Comment 11/20/2018 11:24am Weight 143.00 lb Heart Rate 74 /min BP Systolic 128 mmHg BP Diastolic 70 mmHg Respiratory Rate 18 /min Height 66 inches 5'6" BMI (Body Mass Index) 23.1 kg/m2 10/25/2018 1:53pm Weight 141.00 lb Heart Rate 102 /min BP Systolic 112 mmHg BP Diastolic 70 mmHg Respiratory Rate 18 /min Height 66 inches 5'6" O2 % BldC Oximetry 98 % BMI (Body Mass Index) 22.8 kg/m2 08/21/2018 11:31am Body Temperature 98.7 F Weight 146.00 lb Heart Rate 74 /min BP Systolic 140 mmHg BP Diastolic 90 mmHg Respiratory Rate 18 /min Height 66 inches 5'6" BMI (Body Mass Index) 23.6 kg/m2 06/01/2018 9:27am Weight 143.00 lb Heart Rate 86 /min BP Systolic 122 mmHg BP Diastolic 74 mmHg Respiratory Rate 18 /min Height 66 inches 5'6" BMI (Body Mass Index) 23.1 kg/m2 05/01/2018 10:59am Weight 142.00 lb Heart Rate 60 /min BP Systolic 128 mmHg BP Diastolic 78 mmHg Respiratory Rate 18 /min Height 66 inches 5'6" BMI (Body Mass Index) 22.9 kg/m2 04/19/2018 10:51am Weight 144.00 lb Heart Rate 72 /min BP Systolic 122 mmHg BP Diastolic 84 mmHg Respiratory Rate 18 /min Height 66 inches 5'6" BMI (Body Mass Index) 23.2 kg/m2 01/27/2018 11:11am Weight 142.00 lb Heart Rate 80 /min BP Systolic 120 mmHg BP Diastolic 74 mmHg Respiratory Rate 18 /min Height 66 inches 5'6" BMI (Body Mass Index) 22.9 kg/m2 12/26/2017 1:45pm Body Temperature 98.3 F Weight 143.00 lb Heart Rate 96 /min BP Systolic 114 mmHg BP Diastolic 66 mmHg Respiratory Rate 18 /min Height 66 inches 5'6" BMI (Body Mass Index) 23.1 kg/m2 11/14/2017 11:22am Weight 145.00 lb Heart Rate 70 /min BP Systolic 130 mmHg BP Diastolic 70 mmHg Respiratory Rate 18 /min Height 66 inches 5'6" BMI (Body Mass Index) 23.4 kg/m2 10/10/2017 1:03pm Weight 146.00 lb Heart Rate 74 /min BP Systolic 134 mmHg BP Diastolic 82 mmHg Respiratory Rate 18 /min Height 66 inches 5'6" BMI (Body Mass Index) 23.6 kg/m2 Results Test Date Facility Test Result H/L Range Note Lipid Treatment 11/13/2018 [facility] Cholesterol 231 mg/dL High 50-199 Triglycerides 105 mg/dL 30-200 HDL 45 mg/dL 35-85 1 Chol/ HDL Ratio 5.1 ratio 3.7-5.6 VLDL 21 mg/dL 2-29 LDL (Calc) 165 mg/dL High 20-99 2 Alt 8 U/L 3-42 Ast 12 U/L 8-42 Basic (BMP) 11/13/2018 [facility] Sodium 136 mmol/L 135-146 3 Potassium 4.5 mmol/L 3.5-5.2 Chloride# 104 mmol/L 97-110 4 Carbon Dioxide 24 mmol/L 24-34 Glucose 104 mg/dL 70-105 BUN 11 mg/dL 6-26 Creatinine 0.9 mg/dL 0.5-1.4 Calcium 9.3 mg/dL 8.5-10.2 Female Egfr 79 >60 5 Male Egfr 103 >60 6 Anion Gap 8 mmol/L 5-15 7 CBC with Auto Diff-fcmg 11/13/2018 [facility] WBC 5.7 K/uL 4.1-11.0 RBC 5.13 M/uL 4.00-5.40 Hemoglobin 16.0 gm/dL 12.0-16.0 Hematocrit 47.1 % High 36.0-47.0 MCV 91.7 fL 80.0-97.0 MCH 31.1 pg 27.0-32.0 MCHC 33.9 g/dL 32.0-36.0 RDW 13.5 % 11.5-14.5 PLT Count 211 K/ul 140-400 MPV 10.0 FL 7.1-10.7 8 Neutrophil 69.2 % 35.0-75.0 Lymphocyte 19.7 % 16.0-52.0 Monocyte 6.8 % 2.0-10.0 Eosinophil 2.9 % 0.0-5.0 Basophil 1.4 % 0.0-4.0 Abs Neutrophils 3.9 K/uL 2.1-8.0 Abs Lymphocytes 1.1 K/uL 0.8-5.5 Abs Monocytes 0.4 K/uL 0.1-1.0 Abs Eosinophils 0.2 K/uL 0.0-0.5 Abs Basophils 0.1 K/uL 0.0-0.3 Laboratory test 10/23/2018 [facility] Troponin-I < 0.015 ng/mL 9, 10 finding (315)- - Aot Request 10/23/2018 [facility] Aot Request Test(s) added 11 (315)- - Tests to be added: ddimer Laboratory test 10/23/2018 [facility] Troponin-I < 0.015 ng/mL 12 finding (315)- - Thyroid Stim Hormone 0.73 uIU/mL N 0.30-4.20 13 Free T4 1.14 ng/dL N 0.76-1.46 14 Laboratory test 10/23/2018 [facility] Lipase 116 U/L N 56-289 finding (315)- - CBS W/Automated 10/23/2018 [facility] White Blood 8.5 K/ uL N 3.1-10.7 Diff (315)- - Count Red Blood Count 4.75 M/uL N 3.90-5.40 Hemoglobin 14.8 gm/dL N 11.6-15.8 Hematocrit 41.5 % N 36.0-46.1 Mean Cell Volume 87.4 fl N 80.9-99.0 Mean Corpuscular HGB 31.2 pg N 25.9-32.7 Mean Corpuscular HGB Conc 35.7 g/dL High 30.8-34.3 Platelet Count 255 K/uL N 155-360 Red Cell Distri Width SD 42.9 fl N 36-47 Red Cell Distri Width %CV 13.3 % N 11.7-14.4 Mean Platelet Volume 11.0 fl N 8.9-12.4 Neut% 69.9 % N 40.4-72.8 Lymph % 20.6 % N 20.0-42.0 [place] % 6.3 % N 4.3-13.2 Eo% 1.9 % N 0.0-6.6 Bas% 1.1 % N 0.0-1.1 Immature Grans 0.2 % N 0.0-5.0 NRBC % 0.0 /100WBC < 10/ 100 WBC Neut# 5.91 K/uL N 1.8-7.0 Lymph # 1.74 K/uL N 1.0-4.0 Monroe # 0.53 K/uL N 0.3-0.9 Eos # 0.16 K/uL N 0.0-0.5 Baso # 0.09 K/uL N 0.0-0.1 Immature Grans Absolute 0.02 K/uL NRBC # 0.00 K/uL Laboratory test 10/23/2018 [facility] D-Dimer, 0.46 ug/ mL 15 finding (315)- - Quantitative Comprehensive 10/23/2018 [facility] Glucose 95 mg/dL N 74-10 Metabolic Panel (315)- - 6 BUN 10 mg/dL N 7-18 Creatinine 0.9 mg/dL N 0.6-1.3 Glom Filtration Rate, Estimate >60 mL/min >60 If >60 mL/min >60 16 BUN/Creat 11.1 ratio Sodium 136 mmol/L N 136-145 Potassium 4.2 mmol/L N 3.5-5.1 Chloride 107 mmol/L N 98-107 Carbon Dioxide 25 mmol/L N 21-32 Anion Gap 4 mEq/L Low 8-16 Calcium 8.7 mg/dL N 8.5-10.1 Total Protein 7.5 g/dL N 6.4-8.2 Albumin 4.0 g/dL N 3.4-5.0 Globulin 3.5 g/dL N 1.9-4.3 Alb/Glob 1.1 ratio Bilirubin,Total 0.3 mg/dL N 0.2-1.0 Sgot/Ast 16 U/L N 15-37 SGPT/Alt 18 U/L N 12-78 Alkaline Phosphatase 60 U/L N 45-117 Laboratory test 06/01/2018 [facility] CK 61 U/L N 26- 192 17 finding (315)- - Laboratory test 06/01/2018 [facility] Troponin-I < 0.015 18, 19 finding (315)- - ng/mL D-Dimer, Quantitative < 0.27 ug/mL 20 Lipid Treatment 04/26/2018 [facility] Cholesterol 246 mg/dL High 50-199 Triglycerides 99 mg/dL 30-200 HDL 45 mg/dL 35-85 21 Chol/ HDL Ratio 5.5 ratio 3.7-5.6 VLDL 20 mg/dL 2-29 LDL (Calc) 181 mg/dL High 20-99 22 Alt 8 U/L 3-42 Ast 13 U/L 8-42 Basic (BMP) 04/26/2018 [facility] Sodium 139 mmol/L 135-146 23 Potassium 4.9 mmol/L 3.5-5.2 24 Chloride# 108 mmol/L 97-110 25 Carbon Dioxide 24 mmol/L 24-34 Glucose 95 mg/dL 70-105 BUN 9 mg/dL 6-26 Creatinine 0.9 mg/dL 0.5-1.4 Calcium 9.4 mg/dL 8.5-10.2 Non Qiana Egfr >60 >60 26 Qiana Egfr >60 >60 27 Anion Gap 7 mmol/L 5-15 28 CBC with Auto Diff-fcmg 04/26/2018 [facility] 4.8 K/uL 4.1-11.0 RBC 4.91 M/uL 4.00-5.40 Hemoglobin 15.2 gm/dL 12.0-16.0 Hematocrit 44.3 % 36.0-47.0 MCV 90.1 fL 80.0-97.0 MCH 31.0 pg 27.0-32.0 MCHC 34.4 g/dL 32.0-36.0 RDW 13.6 % 11.5-14.5 PLT Count 225 K/ul 140-400 MPV 10.5 FL 7.1-10.7 Neutrophil 55.3 % 35.0-75.0 Lymphocyte 28.1 % 16.0-52.0 Monocyte 7.1 % 2.0-10.0 Eosinophil 6.4 % High 0.0-5.0 Basophil 3.1 % 0.0-4.0 Abs Neutrophils 2.7 K/uL 2.1-8.0 Abs Lymphocytes 1.4 K/uL 0.8-5.5 Abs Monocytes 0.3 K/uL 0.1-1.0 Abs Eosinophils 0.3 K/uL 0.0-0.5 Abs Basophils 0.2 K/uL 0.0-0.3 Ua RFX Micro & 04/15/2018 [facility] Urine Color YELLOW Yellow 29 Culture II (315)- - Urine Clarity CLEAR Clear Urine Glucose - Dipstick NEGATIVE mg/dL Negative Urine Bilirubin - Dipstick NEGATIVE Negative Urine Ketone NEGATIVE mg/dL Negative Urine Specific [place]gar 1.010 N 1.010-1.030 Urine Blood NEGATIVE Negative Urine PH 6.0 Low 6.5-7.5 Urine Protein - Dipstick NEGATIVE mg/dL Negative Urine Urobilinogen - Dipstick 0.2 E.U./dL N 0.2-1.0 Urine Nitrite - Dipstick NEGATIVE Negative Urine Leuk Esterase NEGATIVE Negative Source: URINE, CLEAN CAT <SEE NOTE> 30 CBS W/Automated Diff 04/15/2018 [facility] White Blood 6.6 K/uL N 3.1-10.7 (315)- - Count Red Blood Count 4.89 M/uL N 3.90-5.40 Hemoglobin 15.2 gm/dL N 11.6-15.8 Hematocrit 43.5 % N 36.0-46.1 Mean Cell Volume 89.0 fl N 80.9-99.0 Mean Corpuscular HGB 31.1 pg N 25.9-32.7 Mean Corpuscular HGB Conc 34.9 g/dL High 30.8-34.3 Platelet Count 253 K/uL N 155-360 Red Cell Distri Width SD 43.9 fl N 3-47 Red Cell Distri Width %CV 13.8 % N 11.7-14.4 Mean Platelet Volume 11.1 fL N 8.9-12.4 Neut% 65.6 % N 40.4-72.8 Lymph % 22.1 % N 20.0-42.0 Monroe % 7.2 % N 4.3-13.2 Eo% 4.2 % N 0.0-6.6 Bas% 0.9 % N 0.0-1.1 Neut# 4.35 K/uL N 1.8-7.0 Lymph # 1.47 K/uL N 1.0-4.0 Monroe # 0.48 K/uL N 0.3-0.9 Eos # 0.28 K/uL N 0.0-0.5 Baso # 0.06 K/uL N 0.0-0.1 Comprehensive Metabolic 04/15/2018 [facility] Glucose 102 mg/dL N 74-106 Panel (315)- - BUN 12 mg/dL N 7-18 Creatinine 0.8 mg/dL N 0.6-1.3 Glom Filtration Rate, Estimate >60 mL/min >60 If >60 mL/min >60 31 BUN/Creat 15.0 ratio Sodium 140 mmol/L N 136-145 Potassium 4.3 mmol/L N 3.5-5.1 Chloride 107 mmol/L N 98-107 Carbon Dioxide 27 mmol/L N 21-32 Anion Gap 6 mEq/L Low 8-16 Calcium 8.9 mg/dL N 8.5-10.1 Total Protein 7.5 g/dL N 6.4-8.2 Albumin 4.0 g/dL N 3.4-5.0 Globulin 3.5 g/dL N 1.9-4.3 Alb/Glob 1.1 ratio Bilirubin,Total 0.4 mg/dL N 0.2-1.0 Sgot/Ast 7 U/L Low 15-37 32 SGPT/Alt 17 U/L N 12-78 Alkaline Phosphatase 62 U/L N 45-117 Laboratory test finding 04/15/2018 [facility] Lipase 132 U/L N 56-289 (315)- - HCG,Serum (Qualitative) NEGATIVE (Negative) Comprehensive Met Panel-FCMG 10/10/2017 [facility] Sodium 139 mmol/L 135- 146 33 Potassium 4.2 mmol/L 3.5-5.2 Chloride# 107 mmol/L 97-110 34 Carbon Dioxide 24 mmol/L 24-34 Glucose 96 mg/dL 70-105 BUN 8 mg/dL 6-26 Creatinine 0.7 mg/dL 0.5-1.4 Calcium 9.6 mg/dL 8.5-10.2 Total Protein 6.9 g/dL 6.0-8.0 Albumin 4.7 g/dL 3.6-4.9 Globulin 2.2 g/dL 2.0-3.5 A/G Ratio 2.1 Ratio 1.0-2.2 Total Bilirubin 0.4 mg/dL 0.1-1.3 Alkaline Phosphatase 46 U/L 24-140 Alt 13 U/L 3-42 Ast 14 U/L 8-42 Qiana Egfr >60 >60 35 Non Qiana Egfr >60 >60 36 Anion Gap 8 mmol/L 5-15 37 CBC With Auto Diff 10/10/2017 [facility] 6.6 K/uL 4.1-11.0 RBC 5.03 M/uL 4.00-5.40 Hemoglobin 15.2 gm/dL 12.0-16.0 Hematocrit 44.7 % 36.0-47.0 MCV 88.9 fL 80.0-97.0 MCH 30.3 pg 27.0-32.0 MCHC 34.0 g/dL 32.0-36.0 RDW 13.7 % 11.5-14.5 PLT Count 238 K/ul 140-400 MPV 9.8 FL 7.1-10.7 Neutrophil 65.9 % 35.0-75.0 Lymphocyte 22.3 % 16.0-52.0 Monocyte 6.1 % 2.0-10.0 Eosinophil 4.9 % 0.0-5.0 Basophil 0.8 % 0.0-4.0 Abs Neutrophils 4.3 K/uL 2.1-8.0 Abs Lymphocytes 1.5 K/uL 0.8-5.5 Abs Monocytes 0.4 K/uL 0.1-1.0 Abs Eosinophils 0.3 K/uL 0.0-0.5 Abs Basophils 0.1 K/uL 0.0-0.3 Laboratory test finding 10/10/2017 [facility] FSH 9.3 mIU/ml 38 LH 15.3 mIU/ml 39 1 Per NCEP ATP III Guidelines: Results lower than 40 mg/dL are suggestive of increased risk for coronary artery disease. Results > or=to 60 mg/dL are considered a negative risk factor. 2 Per NCEP ATP III Guidelines: Normal Population <130 Patients with medical conditions: CHD/DM Optimal: <100 Borderline high: 130-159 High: 160-189 Very high: >189 3 Updated reference range on new analyzer 4 Updated reference range on new analyzer 5 Concerning GFR Guidelines for Americans: Normal function or mild renal disease, if clinically at risk: >/=60 mL/min Moderately decreased: 30-59 Severely decreased: 15-29 Renal failure: <15 There is reduced accuracy above 60ml/min/1.73 m squared, but the numeric value may be clinically useful in the near 60 range 6 Concerning GFR Guidelines: Normal function or mild renal disease, if clinically at risk: >/=60 mL/min Moderately decreased: 30-59 Severely decreased: 15-29 Renal failure: <15 There is reduced accuracy above 60ml/min/1.73 m squared, but the numeric value may be clinically useful in the near 60 range Glomerular Filtration Rate (GFR) is estimated based on the CKD-EPI equation, which assumes a steady state for creatinine as recommended by the National Kidney Disease Education Program in conjunction with the National Institutes of Health and the National Kidney Foundation. Clinical conditions in which it may be necessary to measure GFR by using clearance methods include extremes of age and body size, severe malnutrition or obesity, diseases of skeletal muscle, paraplegia or quadriplegia, vegetarian diet, rapidly changing kidney function, and calculation of the dose of potentially toxic drugs that are excreted by the kidneys. 7 Updated Reference Range 8 Large Platelets Present Giant Platelets Present 9 CHEST PAIN, SENT FROM [facility] 10 0.0 - 0.045 ng/mL: Normal 0.046 - 0.5 ng/mL: Suggestive 0.6 - 1.5 ng/mL: Consistent 11 Tests: ddimer Instructions: 12 0.0 - 0.045 ng/mL: Normal 0.046 - 0.5 ng/mL: Suggestive 0.6 - 1.5 ng/mL: Consistent 13 NO PURPLE OR SST 14 NO PURPLE OR SST 15 <=0.49 ug/mL - Low likelihood of DIC, DVT or Pulmonary Embolism >0.49 ug/mL - Additional testing should be done to rule out DIC, DVT, or Pulmonary embolism as clinically indicated. ([facility] has established a 97.89% negative predictive value for thrombotic disease when a cutoff value of 0.5 ug/mL is used.) 16 Note: Persistent reduction for 3 months or more in an eGFR <60 mL/min/1.73 m2 defines CKD. Patients with eGFR values >/=60 mL/min/1.73 m2 may also have CKD if evidence of persistent proteinuria is present. The original MDRD equation for estimated GFR is not valid for patients less than 18 years of age. Additional information may be found at www.kdoqi.org. 17 STAT MARIAMA SAMUEL [phone] FAX [phone] 18 R07.9 19 0.0 - 0.045 ng/mL: Normal 0.046 - 0.5 ng/mL: Suggestive 0.6 - 1.5 ng/mL: Consistent 20 <=0.49 ug/mL - Low likelihood of DIC, DVT or Pulmonary Embolism >0.49 ug/mL - Additional testing should be done to rule out DIC, DVT, or Pulmonary embolism as clinically indicated. ([facility] has established a 97.89% negative predictive value for thrombotic disease when a cutoff value of 0.5 ug/mL is used.) 21 Per NCEP ATP III Guidelines: Results lower than 40 mg/dL are suggestive of increased risk for coronary artery disease. Results > or=to 60 mg/dL are considered a negative risk factor. 22 Per NCEP ATP III Guidelines: Normal Population <130 Patients with medical conditions: CHD/DM Optimal: <100 Borderline high: 130-159 High: 160-189 Very high: >189 23 Updated reference range on new analyzer 24 Specimen Slightly Hemolyzed 25 Updated reference range on new analyzer 26 Concerning GFR Guidelines: Normal function or mild renal disease, if clinically at risk: >/=60 mL/min Moderately decreased: 30-59 Severely decreased: 15-29 Renal failure: <15 Glomerular Filtration Rate (GFR) is estimated based on the MDRD equation, which assumes a steady state for creatinine as recommended by the National Kidney Disease Education Program in conjunction with the National Institutes of Health and the National Kidney Foundation. Clinical conditions in which it may be necessary to measure GFR by using clearance methods include extremes of age and body size, severe malnutrition or obesity, diseases of skeletal muscle, paraplegia or quadriplegia, vegetarian diet, rapidly changing kidney function, and calculation of the dose of potentially toxic drugs that are excreted by the kidneys. 27 Concerning GFR Guidelines for Americans: Normal function or mild renal disease, if clinically at risk: >/=60 mL/min Moderately decreased: 30-59 Severely decreased: 15-29 Renal failure: <15 28 Updated Reference Range 29 ABD PAIN, BACK PAIN, SENT BY [facility] 30 URINE, CLEAN CATCH 31 Note: Persistent reduction for 3 months or more in an eGFR <60 mL/min/1.73 m2 defines CKD. Patients with eGFR values >/=60 mL/min/1.73 m2 may also have CKD if evidence of persistent proteinuria is present. The original MDRD equation for estimated GFR is not valid for patients less than 18 years of age. Additional information may be found at www.kdoqi.org. 32 Values below the stated reference ranges of AST and ALT can be seen in normal populations. Clinical correlation is suggested. 33 Updated reference range on new analyzer 34 Updated reference range on new analyzer 35 Concerning GFR Guidelines for Americans: Normal function or mild renal disease, if clinically at risk: >/=60 mL/min Moderately decreased: 30-59 Severely decreased: 15-29 Renal failure: <15 36 Concerning GFR Guidelines: Normal function or mild renal disease, if clinically at risk: >/=60 mL/min Moderately decreased: 30-59 Severely decreased: 15-29 Renal failure: <15 Glomerular Filtration Rate (GFR) is estimated based on the MDRD equation, which assumes a steady state for creatinine as recommended by the National Kidney Disease Education Program in conjunction with the National Institutes of Health and the National Kidney Foundation. Clinical conditions in which it may be necessary to measure GFR by using clearance methods include extremes of age and body size, severe malnutrition or obesity, diseases of skeletal muscle, paraplegia or quadriplegia, vegetarian diet, rapidly changing kidney function, and calculation of the dose of potentially toxic drugs that are excreted by the kidneys. 37 Updated Reference Range 38 FSH Female Normal Values: Mid-Follicular: 3.9-8.8 mIU/mL Mid-cycle Peak: 4.5-22.5 mIU/mL Mid-Luteal: 1.8-5.1 mIU/mL Post-menopausal:16.7-113.6 mIU/mL 39 Lutenizing Hormone Female Normal Values: Mid-Follicular: 2.1-10.9 mIU/mL Mid-cycle Peak: 19.2-103.0 mIU/mL Mid-Luteal: 1.2-12.9 mIU/mL Post-menopausal:10.9-58.6 mIU/mL Procedures Date Code Description Status 10/25/2018 02773 Measure Blood Oxygen Level Single Determination Completed 08/21/2018 39436 Admin Of Inj (Therapeutic Phrophylactic Or Diagnostic Subq Completed Inj 06/01/2018 22841 Brief Emotional/Behav Assessment W/ Scoring Doc Per Completed Standard Inst 06/01/2018 13286 Measure Blood Oxygen Level Single Determination Completed 06/01/2018 03334 Electrocardiogram Complete Completed Encounters Type Date Location Provider Dx Diagnosis Office Visit 10/25/2018 1:45p Mariama Hernandez PA R00.2 Palpitations R11.0 Nausea Office Visit 08/21/2018 11:30a Mariama Hernandez PA R51 Headache F41.1 Generalized anxiety disorder E78.2 Mixed hyperlipidemia Office Visit 06/01/2018 9:30a Mariama Hernandez PA F41.1 Generalized anxiety disorder R07.9 Chest pain, unspecified Z13.89 Encounter for screening for other disorder Office Visit 05/01/2018 11:00a Mariama Hernandez PA E78.2 Mixed hyperlipidemia F41.1 Generalized anxiety disorder R10.32 LEFT lower quadrant pain G47.8 Other sleep disorders Office Visit 04/19/2018 11:00a Mariama Hernandez PA R10.32 LEFT lower quadrant pain Office Visit 01/27/2018 11:30a Mariama Hernandez PA F41.1 Generalized anxiety disorder G47.8 Other sleep disorders E78.2 Mixed hyperlipidemia Office Visit 12/26/2017 1:45p Mariama Hernandez PA F41.1 Generalized anxiety disorder G47.8 Other sleep disorders Office Visit 11/14/2017 11:30a [facility] Mariama Samuel PA F41.1 Generalized anxiety disorder G47.8 Other sleep disorders H62.42 Otitis externa in oth diseases classd elswhr, LEFT ear Office Visit 10/10/2017 1:15p Mariama Hernandez PA E78.2 Mixed hyperlipidemia F41.1 Generalized anxiety disorder R10.84 Generalized abdominal pain F17.210 Nicotine dependence, cigarettes, uncomplicated N92.6 Irregular menstruation, unspecified K21.9 Gastro-esophageal reflux disease without esophagitis Z68.23 Body mass index (BMI) 23.0-23.9, adult Plan of Treatment Future Appointment(s):02/20/2019 11:00 am - Mariama Samuel [facility] at [facility] - Mariama Samuel, PAF41.1 Generalized anxiety disorderComments:Self d/c'd effexor Will consider referralWork on self careFollow up:3 months FYE with PapE78.2 Mixed hyperlipidemiaComments:Continue current medicationWill check labs prior to next visitCall with questions/[id number] Nicotine dependence , unspecified, with other nicotine-induceNew Medication:Bupropion Hydrochloride ER (SR) 150 mg - 1 tablet by mouth once daily for 3 days then 1 tablet twicedailyComments:Counselled smoking cessation behavior management and distraction tipsTry franky to see if helps with agitation and cravings, but cautioned se of gi, dry mouth, worse agitation, others Call prn concerning sxsStay on med for 3 months.R00.2 PalpitationsComments:Well controlled with metoprololContinue with current [id number] Encounter for screening mammogram for malignant neoplasm ofNew Xrays:Mammogram Screening, Bilateral Incl CAD When Performe, Scheduled: 12/07/18Comments:Will order mammo
[2018-12-15 20:15] VITALS: BP 135/90
--- NOTE | 2018-12-15 20:51 | UC ---
General HPI - HPI Summary HPI Summary: pt states her L knee gave out causing her to fall 9 days ago. she fell down some stairs but denies any injury from the fall. last pm the knee locked. she notes some swelling behind the knee and generalized knee pain. - History of Current Complaint Chief Complaint: UCLowerExtremity Stated Complaint: LT KNEE INJURY Time Seen by Provider: 12/15/18 20:45 Hx Obtained From: Patient Hx Last Menstrual Period: November 27 Pain Intensity: 8 Associated Signs & Symptoms: Negative: Fever - Allergy/Home Medications Allergies/Adverse Reactions: Allergies Allergy/AdvReac Type Severity Reaction Status Date / Time bee pollen Allergy Hives Verified 12/15/18 20:15 Penicillins Allergy Hives Verified 12/15/18 20:15 Home Medications: Home Medications Albuterol 0.5% CONC NEB.BHAVIK* [Albuterol 0.5ol*] 1 mg .SEE ORDER DAILY PRN [History Confirmed 12/15/18] PMH/Surg Hx/FS Hx/Imm Hx Endocrine History: Dyslipidemia GI/ History: Gastroesophageal Reflux Other History Of: Negative For: HIV, Hepatitis B, Hepatitis C, Anticoagulant Therapy - Surgical History Surgical History: Yes Surgery Procedure, Year, and Place: LASER EYE SURGERY CHILD. RIGHT THUMB TRIGGER FINGER - Family History Known Family History: Positive: None, Cardiac Disease - DAD WITH SD X 3, HE IS A SMOKER , Hypertension - Social History Alcohol Use: None Substance Use Type: None Smoking Status (MU): Current Every Day Smoker Type: Cigarettes Amount Used/How Often: ~1/2 PPD Length of Time of Smoking/Using Tobacco: Since Age 22 Have You Smoked in the Last Year: Yes When Did the Patient Quit Smoking/Using Tobacco: April 2015 Household Exposure Type: Cigarettes - Immunization History Most Recent Influenza Vaccination: FALL 2015 Most Recent Tetanus Shot: Pt unsure-reports records at [facility] Most Recent Pneumonia Vaccination: N/A Review of Systems All Other Systems Reviewed And Are Negative: No Constitutional: Negative: Fever Musculoskeletal: Negative: Decreased ROM Neurological: Negative: Paresthesia, Numbness Physical Exam Triage Information Reviewed: Yes Appearance: Well-Appearing Vital Signs: Initial Vital Signs Temp 98.3 F 12/15/18 20:07 Pulse 84 12/15/18 20:07 Resp 18 12/15/18 20:07 BP 135/90 12/15/18 20:07 Pulse Ox 100 12/15/18 20:07 Vital Signs Reviewed: Yes Musculoskeletal: Positive: Other: - LLE: hip, achilles, ankle and foot are nontender. foot has full s/v/m function. Knee= slight anterior swelling and cystic type swelling to popliteal fossa. The knee has generalized tenderness. No joint laxity. active ROM is intact. Neurological: Positive: Alert Psychological: Positive: Age Appropriate Behavior Skin Exam: Normal Diagnostics - Radiology No standard instances Radiology Interpretation Completed By: ED Physician - L knee=nad Course/Dx - Differential Dx - Multi-Symptom Differential Diagnoses: Other - the locking and giving out raises concern for a meniscal tear. the popliteal fossa is concerning for a Vázquez's cyst. no concern for fx or infection - Diagnoses Provider Diagnosis: Left knee pain Discharge - Sign-Out/Discharge Documenting (check all that apply): Patient Departure All imaging exams completed and their final reports reviewed: No - Discharge Plan Condition: Stable Disposition: HOME Patient Education Materials: Bakers Cyst (ED), Meniscus Tear (ED), Knee Pain ( ED) Referrals: Neftali Espino MD [Medical Doctor] - As Soon As Possible Additional Instructions: USE BOBO DURING DAY AND REMOVE AT BEDTIME. USE CRUTCHED TO LIMITED WEIGHT ON KNEE. - Billing Disposition and Condition Condition: STABLE Disposition: Home
--- NOTE | 2018-12-16 09:54 | UC ---
- EKG/XRAY/CT Xray Comments: wet read correct Course/Dx - Diagnoses Provider Diagnoses: Left knee pain Discharge - Sign-Out/Discharge Documenting (check all that apply): Patient Departure All imaging exams completed and their final reports reviewed: Yes - Discharge Plan Condition: Stable Disposition: HOME Patient Education Materials: Bakers Cyst (ED), Knee Pain (ED), Meniscus Tear ( ED) Referrals: Neftali Espino MD [Medical Doctor] - As Soon As Possible Additional Instructions: USE BOBO DURING DAY AND REMOVE AT BEDTIME. USE CRUTCHED TO LIMITED WEIGHT ON KNEE. - Billing Disposition and Condition Condition: STABLE Disposition: Home
== END 2018-12-15 21:30 | disposition home or self-care (01) ==
LOC: UCCORT 19:55
DX: M25.562 Pain in left knee (principal); Z88.0 Allergy status to penicillin; Z91.030 Bee allergy status; F17.210 Nicotine dependence, cigarettes, uncomplicated
CPT/HCPCS: 99213; G0463

== ENCOUNTER 2019-05-05 18:32 | Emergency (ER) | payer OTHER ==
[2019-05-05 18:52] VITALS: BP 138/77
[2019-05-05] MEDS ORDERED: DOXYcycline CAP(*) 100 MG PO ONE (19:33)
[2019-05-05] MEDS ORDERED: predniSONE TAB* 20 MG PO ONE (19:33)
[2019-05-05] MEDS ORDERED: Benzonatate CAP* 100 MG PO ONE (19:33)
--- NOTE | 2019-05-05 19:33 | UC ---
Respiratory Complaint HPI - HPI Summary HPI Summary: 48-year-old female who was a smoker who has had chest congestion and head congestion for approximately 2 weeks. - History of Current Complaint Chief Complaint: UCRespiratory Stated Complaint: CHEST CONGESTION Time Seen by Provider: 05/05/19 19:08 Hx Obtained From: Patient Hx Last Menstrual Period: 04/29/19 ?: No Onset/Duration: Gradual Onset Timing: Intermittent Episodes Severity Initially: Mild Severity Currently: Mild Pain Intensity: 0 Character: Cough: Productive - Productive cough of whitish sputum. Alleviating Factors: Bronchodilator - She has been doing nebulizer treatments at home without improvement. Associated Signs And Symptoms: Positive: URI, Nasal Congestion, Sinus Discomfort - Allergies/Home Medications Allergies/Adverse Reactions: Allergies Allergy/AdvReac Type Severity Reaction Status Date / Time bee pollen Allergy Hives Verified 05/05/19 18:46 Penicillins Allergy Hives Verified 05/05/19 18:46 PMH/Surg Hx/FS Hx/Imm Hx Previously Healthy: Yes Respiratory History: COPD, Asthma Other History Of: Negative For: HIV, Hepatitis B, Hepatitis C, Anticoagulant Therapy - Surgical History Surgical History: Yes Surgery Procedure, Year, and Place: LASER EYE SURGERY CHILD. RIGHT THUMB TRIGGER FINGER - Family History Known Family History: Positive: None, Cardiac Disease - DAD WITH MN X 3, HE IS A SMOKER , Hypertension - Social History Alcohol Use: None Substance Use Type: None Smoking Status (MU): Current Every Day Smoker Type: Cigarettes Amount Used/How Often: 4 cigs/day Length of Time of Smoking/Using Tobacco: Since Age 22 Have You Smoked in the Last Year: Yes When Did the Patient Quit Smoking/Using Tobacco: April 2015 Household Exposure Type: Cigarettes - Immunization History Most Recent Influenza Vaccination: FALL 2015 Most Recent Tetanus Shot: Pt unsure-reports records at [facility] Most Recent Pneumonia Vaccination: N/A Review of Systems All Other Systems Reviewed And Are Negative: Yes ENT: Positive: Nasal Discharge, Sinus Congestion, Sinus Pain/Tenderness Respiratory: Positive: Cough Is Patient Immunocompromised?: No Physical Exam Triage Information Reviewed: Yes Appearance: Well-Appearing, No Pain Distress, Well-Nourished Vital Signs: Initial Vital Signs Temp 98.2 F 05/05/19 18:47 Pulse 86 05/05/19 18:47 Resp 16 05/05/19 18:47 BP 138/77 05/05/19 18:47 Pulse Ox 98 05/05/19 18:47 Vital Signs Reviewed: Yes Eyes: Positive: Conjunctiva Clear ENT: Positive: Hearing grossly normal, Pharynx normal, Nasal congestion, Nasal drainage - Clear nasal coryza, TMs normal, Uvula midline. Negative: Sinus tenderness Neck: Positive: Supple, Nontender, No Lymphadenopathy Respiratory: Positive: No respiratory distress, No accessory muscle use, Rhonchi - Scattered rhonchi throughout however good air movement. Cardiovascular: Positive: RRR, No Murmur, Pulses Normal, Brisk Capillary Refill Musculoskeletal Exam: Normal Neurological Exam: Normal Psychological Exam: Normal Skin Exam: Normal Respiratory Course/Dx - Course Course Of Treatment: Patient is comfortable here. She is given a dose of benzonatate, prednisone 40 mg, and one dose of doxycycline 100 mg here. She is to continue the benzonatate as needed for cough, prednisone tapers given, continue the doxycycline 100 mgby mouth twice a day 10 days. She is to follow-up with her primary care provider if no improvement in 4 or 5 days. She was also advised to stop smoking - Differential Dx/Diagnosis Provider Diagnosis: Bronchitis Discharge ED - Sign-Out/Discharge Documenting (check all that apply): Patient Departure All imaging exams completed and their final reports reviewed: No Studies - Discharge Plan Condition: Fair Disposition: HOME Prescriptions: Benzonatate CAP* [Tessalon 100 MG CAP*] 100 mg PO TID PRN 7 Days #21 cap PRN Reason: Cough DOXYcycline CAP(*) [DOXYcycline 100MG CAP(*)] 100 mg PO BID 10 Days #20 cap predniSONE TAB* [Deltasone 10 MG TAB*] 10 mg PO DAILY 12 Days #30 tab Patient Education Materials: Acute Bronchitis (ED) Referrals: Mariama Samuel PA [Primary Care Provider] - Additional Instructions: Increase fluids. No dairy products, antacids or multivitamins 2 hours before you take doxycycline and 2 hours after you take doxycycline however be sure and take it with food. Use her albuterol nebulizer every 4 hours as needed for wheezing or shortness of breath. Follow-up with your primary care provider in 4 or 5 days if no improvement. - Billing Disposition and Condition Condition: FAIR Disposition: Home
== END 2019-05-05 19:53 | disposition home or self-care (01) ==
LOC: UCCORT 18:32
DX: J44.9 Chronic obstructive pulmonary disease, unspecified (principal); F17.210 Nicotine dependence, cigarettes, uncomplicated; R09.89 Other specified symptoms and signs involving the circulatory and respiratory systems; Z88.0 Allergy status to penicillin; Z91.030 Bee allergy status
CPT/HCPCS: 99212; A9270-GY; G0463; J7512